=== PATIENT | female | born 1980 | race African-American/Black ===

== ENCOUNTER 2020-07-08 10:50 | Outpatient (CLI) | payer OTHER ==
[2020-07-08 18:13] LABS: HGB - HEMOGLOBIN 10.2 g/dL (12.0-16.0); MEAN CORPUSCULAR HGB CONC 31.8 g/dL (32.0-36.0); MEAN CORPUSCULAR VOLUME 88.2 fL (81.0-99.0); MEAN PLATELET VOLUME 10.2 fL (7.9-10.8); RED BLOOD COUNT 3.64 10^6/uL (4.20-5.40); RED CELL DISTRIBUTION WIDTH 14.9 % (12.0-15.0); WHITE BLOOD COUNT 10.9 x10^3/uL (4.8-10.8)
== END 2020-07-08 23:59 | disposition home or self-care (01) ==
LOC: LAB.WCP 10:50
PROVIDERS: ATTEND Obstetrics & Gynecology
DX: O09.90 Supervision of high risk pregnancy, unspecified, unspecified trimester (principal)
CPT/HCPCS: 36415; 82950; 85027

== ENCOUNTER 2020-07-08 22:51 | Observation (INO) | payer OTHER ==
[2020-07-08] MEDS ORDERED: ONDANSETRON 4 MG/2 ML VIAL IVP STA (23:15)
[2020-07-08] MEDS ORDERED: ONDANSETRON 4 MG/2 ML VIAL ONE (23:25)
--- NOTE | 2020-07-08 23:35 | ED Physician Documentation ---
PD HPI ABD PAIN - Stated complaint Stated Complaint: ABD PX/VOM - Chief complaint Chief Complaint: Abd Pain - History obtained from History obtained from: Patient - History of Present Illness Timing - onset: How many hours ago (1) Timing - details: Abrupt onset Pain level max: 10 Pain level now: 10 Quality: Pain Location: RUQ, Epigastric Radiation: Other (no radiation) Improved by: Other (no ameliorating factors) Worsened by: Other (no exacerbating factors) Associated symptoms: Nausea, Vomiting. No: Fever Similar symptoms before: Has not had sx before Recently seen: Not recently seen - Additional information Additional information: patient is 26 weeks , c/o sudden onset pain across upper abdomen 1 hour ago, constant and severe with nausea, vomiting.denies h/o similar symptoms. Review of Systems Constitutional: denies: Fever, Chills, Sweats Cardiac: reports: Reviewed and negative Respiratory: reports: Reviewed and negative GI: reports: Abdominal Pain, Nausea, Vomiting. denies: Constipation, Diarrhea : reports: Now EGA (26 weeks). denies: Dysuria, Frequency, Vaginal bleeding Skin: reports: Reviewed and negative Musculoskeletal: reports: Reviewed and negative PD PAST MEDICAL HISTORY - Past Medical History Past Medical History: No - Past Surgical History Past Surgical History: Yes /DUCT CLEANER: section - Allergies Allergies/Adverse Reactions: Allergies Allergy/AdvReac Type Severity Reaction Status Date / Time No Known Drug Allergies Allergy Verified 07/08/20 23:45 - Living Situation Living Situation: reports: With family Living Arrangement: reports: At home PD ED PE NORMAL - Vitals Vital signs reviewed: Yes - General General: Alert and oriented X 3, Well developed/nourished, Other (obvious severe painful distress) - HEENT HEENT: Moist mucous membranes - Cardiac Cardiac: RRR, No murmur - Respiratory Respiratory: No respiratory distress, Clear bilaterally - Back Back: No CVA TTP PD ED PE EXPANDED - Abdomen Abdomen: Tender to palpation, RUQ, Epigastric. No: Rebound, Guarding Results - Vitals Vitals: Vital Signs - 24 hr 07/08/20 07/09/20 07/09/20 23:08 02:00 03:00 Temperature 36.8 C 36.7 C Heart Rate 88 91 98 Respiratory 22 14 13 Rate Blood Pressure 141/71 H 121/64 121/70 O2 Saturation 100 100 100 07/09/20 03:50 Temperature 36.9 C Heart Rate 85 Respiratory 20 Rate Blood Pressure 127/72 O2 Saturation 100 Oxygen O2 Source Room air - Labs Labs: Laboratory Tests 07/08/20 07/08/20 00:00 00:00 WBC 13.8 H RBC 3.50 L Hgb 9.6 L Hct 30.3 L MCV 86.6 MCH 27.4 MCHC 31.7 L RDW 14.6 Plt Count 283 MPV 9.3 Neut # (Auto) 10.8 H Lymph # (Auto) 1.9 Bowman # (Auto) 0.8 Eos # (Auto) 0.1 Baso # (Auto) 0.1 Absolute Nucleated RBC 0.00 Nucleated RBC % 0.0 Sodium 138 Potassium 3.5 Chloride 108 Carbon Dioxide 20 L Anion Gap 10.0 BUN 10 Creatinine 0.8 Estimated GFR (MDRD) 97 Glucose 153 H Calcium 9.1 Total Bilirubin 0.4 AST 14 ALT 14 Alkaline Phosphatase 77 Total Protein 7.2 Albumin 3.2 Globulin 4.0 Albumin/Globulin Ratio 0.8 L Lipase 44 - Rads (name of study) RUQ US Radiology: Prelim report reviewed, See rad report OB 14+ weeks US Radiology: Prelim report reviewed, See rad report PD MEDICAL DECISION MAKING - ED course Complexity details: reviewed results, re-evaluated patient, considered differential, d/w patient, d/w family ED course: presents in severe painful distress, found to have large, nonmobile gallstone on US. she had significant improvement with 1mg IV dilaudid but required second dose (0.5 mg given for second dose) due to eventual recurrence of the pain, and then a third dose of 0.5 mg IV prior to admission. US measurements c/w 27 weeks gestation. D/W Dr. Meélndez; she says that if patient requires surgery, she would need to be transferred due to >20 week gestation. If patient is to be considered for admission to [facility] for symptom control only, admission would be to lab rn on-call at the discretion of the lab rn's level of comfort with such a plan. D/W Dr. Chatman, agrees with admit to [facility] for symptom control. There is no evidence, on exam or test results, of cholecystitis. Patient is getting good relief with the doses of IV dilaudid but would benefit from longer period of observation prior to discharge to assess for ongoing symptom control or, failing that, reconsidering transfer to another facility if surgery appears necessary. Departure - Departure Disposition: ED Place in Observation Clinical Impression: Biliary colic, Condition: Good Discharge Date/Time: 07/09/20 04:29
[2020-07-08] MEDS ORDERED: HYDROmorphone 1 MG/ML CARPUJECT IVP STA (23:45)
[2020-07-08] MEDS ORDERED: SODIUM CHLORIDE 0.9% 1,000 ML IV STA (23:47)
[2020-07-09 00:03] LABS: BASOPHILS # (AUTO) 0.1 10^3/uL (0.0-0.1); BASOPHILS % (AUTO) 0.4 %; EOSINOPHILS # (AUTO) 0.1 10^3/uL (0.0-0.7); HGB - HEMOGLOBIN 9.6 g/dL (12.0-16.0); LYMPHOCYTES # (AUTO) 1.9 10^3/uL (1.5-3.5); LYMPHOCYTES % (AUTO) 13.4 %; MEAN CORPUSCULAR HEMOGLOBIN 27.4 pg (27.0-31.0); MEAN CORPUSCULAR HGB CONC 31.7 g/dL (32.0-36.0); MEAN CORPUSCULAR VOLUME 86.6 fL (81.0-99.0); MEAN PLATELET VOLUME 9.3 fL (7.9-10.8); MONOCYTES # (AUTO) 0.8 10^3/uL (0.0-1.0); MONOCYTES % (AUTO) 6.1 %; NEUTROPHILS # (AUTO) 10.8 10^3/uL (1.5-6.6); NEUTROPHILS % (AUTO) 77.9 %; PLT - PLATELET COUNT 283 10^3/uL (130-450); RED CELL DISTRIBUTION WIDTH 14.6 % (12.0-15.0); WHITE BLOOD COUNT 13.8 x10^3/uL (4.8-10.8)
[2020-07-09 00:17] LABS: ALBUMIN 3.2 g/dL (3.2-5.5); ALBUMIN/GLOBULIN RATIO 0.8 (1.0-2.2); BILIRUBIN,TOTAL 0.4 mg/dL (0.2-1.0); CALCIUM 9.1 mg/dL (8.5-10.3); CREATININE 0.8 mg/dL (0.4-1.0); TOTAL PROTEIN 7.2 g/dL (6.7-8.2)
[2020-07-09] MEDS ORDERED: HYDROmorphone 1 MG/ML CARPUJECT IVP STA (01:47)
[2020-07-09] MEDS ORDERED: HYDROmorphone 0.5 MG/0.5 ML SYRINGE IVP STA ×2 (01:47→04:04)
[2020-07-09] MEDS ORDERED: ONDANSETRON 4 MG/2 ML VIAL IVP PRN (04:09)
--- NOTE | 2020-07-09 04:42 | HISTORY & PHYSICAL EXAMINATION ---
Admit History - Visit Reason Visit Reason: Other (gallstone related pain) - : 5 Parity: 1 Care: positive: Other (Recent transfer to [facility] from [place]. Bulk of care in [place] with records pending) Risk/History: positive: Previous Complications This : positive: Other (AMA, BMI 38, prior CS) - Mother's Labs Mother's Blood Type: positive: B Mother's RH: positive: Positive GBS: positive: Other (unknown 2/2 early GA) - Other Maternal History Other Maternal History: Patient is a 39 yo at 27+1 wga by LMP at 12 week us admitted to observation for pain management. Patient presented to the ED with RUQ pain. US shows obstructing gallstone without cholecystitis or elevated LFTs. Gen Surg had been consulted. Pain management was recommended with plan to relax gallbladder such that stone can dislodge. If surgery is indicated, will require transfer to an outside facility given viable but gestational age. "Cee-cee" Dating: LMP c/w 1st TM us per [place] records MINE 10/07/20 Rh + / rubella / varicella [ ] need to translate report Genetic: normal 1st trimester screen with NT Carrier: this is final Anatomy: Normal anatomy, nl fluid, anterior placenta without previa, CL 5.7, 92%ile EFW Gluc: 123 Tdap: not yet given Flu: given 07/03/20 Breast pump: given 07/03/20 HSV: TBA GBS gc/ct: MOD: Repeat with possible BTL on 09/30/19. Female, "[place]" Pap: 03/30/20 wnl Contraception: possible tubal--fed papers signed 07/03/20 PROBLEM LIST 1. Transfer [place] with some care in [place]: labs not transcribed yet 2. Prior for failed IOL; history of lysis of adhesions for tubal attachement to uterus--but no other adhesive disease 3. Breast augmentation: implants subpectoral but had supply problems last time. Reviewed assistance available PRN. 4. 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 Advanced maternal age 40yo on MINE: is on ASA 81mg daily. Normal genetic screen and anatomy US. Normal baseline PIH labs 24h urine 156mg and normal PIH labs on 05/28/20. 6. Hx of hemorrhage due to atony, no transfusion needed. 7. Obese prepregnancy BMI 38: Has gained 10#. Praised. 8. EFW 92% ile at anatomy US: follow up for growth ordered. Meds/Allgy - Allergies Allergies/Adverse Reactions: Allergies Allergy/AdvReac Type Severity Reaction Status Date / Time No Known Drug Allergies Allergy Verified 07/08/20 23:45 Review of Systems - Other Findings Other Findings: As per HPI, otherwise remaining systems are negative Physical - Abdominal Exam Vital Signs: Temp Pulse Resp BP Pulse Ox 98.4 F 85 20 127/72 100 07/09/20 03:50 07/09/20 03:50 07/09/20 03:50 07/09/20 03:50 07/09/20 03:50 Contraction Frequency (min/apart): none - Other Notes Labor Progress Note/Additional Text: GEN: NAD HEENT: NCAT CV: RRR RESP: CTAB ABD: gravid, soft. Mild TTP in epigastric area. No TTP in RUQ EXT: WWP PSYCH: appropriate affecy NEUro: A&O Plan for Labor - Plan For Labor Plan for Labor: Patient scenario reviewed with Dr. Meléndez for General Surgery Patient was admitted for observation for pain management in the setting of gallstones Per Dr. Meléndez, if gallbladder is able to relax, stone will dislodge and surgery and further pain management will not be indicated. If worsens, patient will need to be transferred to a facility that can manage 27 week delivery in the even of surgical complications. Patient's pain improved after 3 additional doses of dilaudid. She did not require and pain medications for discharge FWB: AGA tracing Discharged to home DX: at 27+1 wga cholelithiasis without cholecystitis or pancreatitis Pain management
[2020-07-09] MEDS ORDERED: SODIUM CHLORIDE 0.9% 1,000 ML IV SCH (05:00)
[2020-07-09] MEDS: HYDROmorphone 0.5 MG/0.5 ML SYRINGE IVP PRN ×3 (06:04→10:01)
[2020-07-09] MEDS ORDERED: FAMOTIDINE 20 MG/2 ML SYRINGE IVP ONE (07:00)
[2020-07-09 08:00] LABS: BASOPHILS % (AUTO) 0.2 %; EOSINOPHILS % (AUTO) 0.1 %; HGB - HEMOGLOBIN 10.8 g/dL (12.0-16.0); LYMPHOCYTES # (AUTO) 1.1 10^3/uL (1.5-3.5); LYMPHOCYTES % (AUTO) 6.5 %; MEAN CORPUSCULAR HEMOGLOBIN 27.8 pg (27.0-31.0); MEAN CORPUSCULAR HGB CONC 31.3 g/dL (32.0-36.0); MEAN CORPUSCULAR VOLUME 88.7 fL (81.0-99.0); MEAN PLATELET VOLUME 10.1 fL (7.9-10.8); MONOCYTES # (AUTO) 0.7 10^3/uL (0.0-1.0); MONOCYTES % (AUTO) 4.5 %; NEUTROPHILS # (AUTO) 14.1 10^3/uL (1.5-6.6); NEUTROPHILS % (AUTO) 86.3 %; PLT - PLATELET COUNT 301 10^3/uL (130-450); RED BLOOD COUNT 3.89 10^6/uL (4.20-5.40); RED CELL DISTRIBUTION WIDTH 14.6 % (12.0-15.0); WHITE BLOOD COUNT 16.3 x10^3/uL (4.8-10.8)
[2020-07-09 08:04] VITALS: BP 123/66
[2020-07-09 08:13] LABS: ALBUMIN 3.3 g/dL (3.2-5.5); ALBUMIN/GLOBULIN RATIO 0.8 (1.0-2.2); BILIRUBIN,TOTAL 0.3 mg/dL (0.2-1.0); CALCIUM 8.9 mg/dL (8.5-10.3); CREATININE 0.7 mg/dL (0.4-1.0); TOTAL PROTEIN 7.5 g/dL (6.7-8.2)
--- NOTE | 2020-07-09 08:29 | Ultrasound Report ---
PROCEDURE: Abdomen Limited INDICATIONS: epigastric pain TECHNIQUE: Real-time scanning was performed of the abdominal and retroperitoneal organs, with image documentatio n. COMPARISON: None. FINDINGS: Liver: Liver is normal in size and homogeneous in echotexture. Gallbladder: A single 2 cm gallstone is seen at the neck of the gallbladder. There is no significant gallbladder wall thickening. No pericholecystic fluid is seen. Sonographic Cook sign is unreliable setting of medication for pain. Biliary ducts: Intrahepatic bile ducts are non-dilated. Extrahepatic bile duct caliber measures 6 m m. Normal is 6-7 mm or less in diameter, or 10 mm or less post-cholecystectomy. Pancreas: The pancreas is not well-visualized due to overlying bowel gas. The visualized portion of t he pancreatic head appears normal. Right Kidney: Right kidney is normal in size and echotexture. Right kidney measures 10.1 cm long. N o hydronephrosis or nephrolithiasis. No solid masses. Iliacs: Proximal common iliac arteries are normal in caliber at less than 2.5 cm. Miscellaneous: No free right upper quadrant fluid. IMPRESSION: Cholelithiasis without additional signs of acute cholecystitis. There is no significant discrepancy when compared with the overnight teleradiology report. Reviewed by: Bora Rubin MD on 07/09/2020 8:28 AM PST Approved by: Bora Rubin MD on 07/09/2020 8:28 AM PST Station ID: [id number]
[2020-07-09 08:32] LABS: PLATELET ESTIMATE, MANUAL NORMAL (130-450,000) (NORMAL); PLATELET MORPHOLOGY 2+ LARGE PLATELETS (NORMAL); RBC MORPHOLOGY (MULTIPLE) NORMAL APPEARANCE (NORMAL)
--- NOTE | 2020-07-09 08:35 | Ultrasound Report ---
PROCEDURE: OB 14+ Weeks INDICATIONS: approximately 26 weeks , abd. pain OUTSIDE/PRIOR DATING DATA: Last menstrual period (LMP): 01/05/2020. LMP-based estimated date of delivery (MINE): 10/11/2020. First dating scan (date and location): Prior exam from [facility] is unavailable at the time of this dictat ion. TECHNIQUE: Real-time scanning was performed of the fetus, with image documentation and biometric measurements. Endovaginal scanning: Not performed. COMPARISON: No previous study is available for comparison at the time of this dictation. FINDINGS: General: A single living intrauterine gestation is present. Presentation: Cephalic Placenta: Placental position is anterior, without previa. Amniotic fluid index: 22.7 cm, 96th percentile for gestational age. heart rate: 128 beats per minute. Maternal cervical canal: 6.1 cm long; normal length is 2.5 cm or more. biometrics: Biparietal diameter: 6.43 cm, 26 weeks 0 days Head circumference: 24.7 cm, 26 weeks 6 days Abdominal circumference: 23.8 cm, 28 weeks 1 day Femur length: 5.25 cm, 28 weeks 0 days Estimated gestational age from initial scan: not applicable. Composite gestational age from present scan: 27 weeks 1 day Estimated weight and percentile: 1126 g, 86th percentile Measurement variability for biometric dating: +/- 10 days from 12-20 weeks gestation, +/- 2 weeks fro m 20-30 weeks gestation, +/- 3 weeks for 30 weeks gestation or later. Anatomic survey: Limited evaluation of anatomy demonstrates no significant abnormality. Recommend correlation wi prior exams if they should become available. IMPRESSION: 1. Single live intrauterine . No acute abnormality is visualized. 2. Amniotic fluid index is at the upper limits of normal for gestational age. Recommend correlation with clinical findings and prior exams if they become available. There is no significant discrepancy when compared with the overnight teleradiology report. Reviewed by: Bora Rubin MD on 07/09/2020 8:34 AM PST Approved by: Bora Rubin MD on 07/09/2020 8:34 AM PST Station ID: [id number]
== END 2020-07-09 13:35 | disposition home or self-care (01) ==
LOC: ED 22:51 → FBP 07-09 04:06
PROVIDERS: ADMIT Obstetrics & Gynecology; ATTEND Obstetrics & Gynecology
DX: O99.612 Diseases of the digestive system complicating pregnancy, second trimester (principal); K80.21 Calculus of gallbladder without cholecystitis with obstruction; Z3A.27 27 weeks gestation of pregnancy
CPT/HCPCS: 36415; 76705; 76805; 80053; 82728; 83540; 83690; 84466; 85025; 96374; 96375; 96376; 99284; 99285; G0378; J1170

== ENCOUNTER 2020-08-13 15:06 | Outpatient (CLI) | payer OTHER ==
[2020-08-13 15:14] VITALS: BP 116/73
--- NOTE | 2020-08-17 21:15 | PROCEDURE REPORT ---
- HPI Diagnosis/Indication for NST: Other (AMA) Current EDU 10/07/20 Gestation 32 Weeks and 1 Days 5 Para 1 Vital Signs Temperature 99.3 F 08/13/20 15:12 Heart Rate 94 08/13/20 15:12 Respiratory Rate 18 08/13/20 15:12 Blood Pressure 116/73 08/13/20 15:12 O2 Saturation 99 08/13/20 15:12 Temperature 99.3 F 08/13/20 15:12 Heart Rate 94 08/13/20 15:12 Respiratory Rate 18 08/13/20 15:12 Blood Pressure 116/73 08/13/20 15:12 O2 Saturation 99 08/13/20 15:12 - NST Procedure NST Procedure Start Date 08/13/20 Start Time 15:07 Stop Time 15:35 Vibroacoustic Stimulation Used No Patient States Movement Yes EFM 130 mod connor 15x15 accels no decels TOCO: qiet - Results and Plan Findings/Impression: 40 yo at 32+1 here for NST Cat I tracing Cont with twice weekly NSt and weekly ASTRID DX: AMA IUP at 32+1
== END 2020-08-13 17:00 | disposition home or self-care (01) ==
LOC: WFO 15:06 → FBP 15:11 → WFO 17:00
PROVIDERS: ATTEND Obstetrics & Gynecology
DX: O09.523 Supervision of elderly multigravida, third trimester (principal); Z3A.32 32 weeks gestation of pregnancy
CPT/HCPCS: 59025

== ENCOUNTER 2020-08-13 15:38 | Outpatient (CLI) | payer OTHER ==
--- NOTE | 2020-08-13 16:48 | Ultrasound Report ---
PROCEDURE: OB Limited INDICATIONS: ADV MATERNAL AGE, SUPER OF HIGH RISK OUTSIDE/PRIOR DATING DATA: Last menstrual period (LMP): 01/05/2020. LMP-based estimated date of delivery (MINE): 10/11/2020. First dating scan (date and location): 06/01/2020. Estimated date of delivery (MINE) from first dating scan: 10/05/2020. TECHNIQUE: Real-time scanning was performed of the fetus, with image documentation. Endovaginal scanning: Not needed COMPARISON: 07/09/2020 OB ultrasound FINDINGS: A single living intrauterine gestation is present. Presentation: Vertex Placenta: Placental position is anterior, without previa. Amniotic fluid index: 23.4 cm, 93.2 percentile for gestational age. heart rate: 131 beats per minutes. Maternal cervical canal not seen due to vertex presentation.. Estimated gestational age from initial scan: 32.3 weeks. IMPRESSION: Study Limited at clinician request 2 amniotic fluid volume evaluation. Current ASTRID is 23 .4 cm, at the upper 93rd percentile for current gestational age. Reviewed by: Ryan Lopez MD on 08/13/2020 4:47 PM PST Approved by: Ryan Lopez MD on 08/13/2020 4:47 PM PST Station ID: [id number]
== END 2020-08-13 15:39 | disposition home or self-care (01) ==
LOC: DI 15:38
PROVIDERS: ATTEND Obstetrics & Gynecology
DX: O09.93 Supervision of high risk pregnancy, unspecified, third trimester (principal); Z3A.32 32 weeks gestation of pregnancy; Z31.5 Encounter for procreative genetic counseling

== ENCOUNTER 2020-08-19 07:45 | Outpatient (CLI) | payer OTHER ==
--- NOTE | 2020-08-19 15:43 | Ultrasound Report ---
PROCEDURE: OB Limited INDICATIONS: ADV MATERNAL AGE, SUPER OF HIGH RISK OUTSIDE/PRIOR DATING DATA: Last menstrual period (LMP): 01/05/2020. LMP-based estimated date of delivery (MINE): 10/11/2020. First dating scan (date and location): 06/01/2020. Estimated date of delivery (MINE) from first dating scan: 10/05/2020. TECHNIQUE: Real-time scanning was performed of the fetus, with image documentation. Endovaginal scanning: Not needed COMPARISON: All prior OB ultrasound studies for this . FINDINGS: A single living intrauterine gestation is present. Presentation: Vertex Placenta: Placental position is anterior, without previa. Amniotic fluid index: 17.3 cm, 69 percentile for gestational age. heart rate: 139 beats per minutes. Maternal cervical canal: 5.1 cm long; normal length is 2.5 cm or more. Estimated gestational age from initial scan: 33 weeks 2 days, from first available OB ultrasound.. IMPRESSION: Appropriate amniotic fluid index, 69 percentile for current gestational age. Vertex pres entation, anterior placenta. No evidence of abnormality seen. Reviewed by: Ryan Lopez MD on 08/19/2020 3:41 PM PST Approved by: Ryan Lopez MD on 08/19/2020 3:41 PM PST Station ID: [id number]
--- NOTE | 2020-08-20 10:26 | Labor Flowsheet ---
Labor Flowsheet Datetime Report Generated by CPN: 08/20/2020 10:26 Datetime: 08/20/2020 10:06 VITAL SIGNS NBP Sys/Dayami/Mean (mmHg): 131 : 77 : 88 Pulse: 113
--- NOTE | 2020-09-02 13:27 | PROCEDURE REPORT ---
- HPI Diagnosis/Indication for NST: Other (AMA) Current EDU 10/07/20 Gestation 33 Weeks and 0 Days 5 Para 2 - NST Procedure NST Procedure Start Date 08/19/20 Start Time 08:22 Stop Time 09:22 Patient States Movement Yes - Results and Plan Findings/Impression: REACTIVE NST Plan: DOS 08/19/2020 CONTINUE ANTINATAL TESTING
== END 2020-08-19 09:30 | disposition home or self-care (01) ==
LOC: DI 07:45 → FBP 08:14 → DI 09:30
PROVIDERS: ATTEND Obstetrics & Gynecology
DX: O09.523 Supervision of elderly multigravida, third trimester (principal); Z3A.33 33 weeks gestation of pregnancy
CPT/HCPCS: 59025; 99212

== ENCOUNTER 2020-08-24 08:39 | Outpatient (CLI) | payer OTHER ==
[2020-08-24 09:02] VITALS: BP 110/59
--- NOTE | 2020-09-02 13:42 | PROCEDURE REPORT ---
- HPI Diagnosis/Indication for NST: Other (AMA) Current EDU 10/07/20 Gestation 33 Weeks and 5 Days 2 Para 1 Vital Signs Temperature 37.1 C 08/24/20 08:59 Heart Rate 102 H 08/24/20 08:59 Respiratory Rate 18 08/24/20 08:59 Blood Pressure 110/59 L 08/24/20 08:59 Temperature 37.1 C 08/24/20 08:59 Heart Rate 102 H 08/24/20 08:59 Respiratory Rate 18 08/24/20 08:59 Blood Pressure 110/59 L 08/24/20 08:59 O2 Saturation - NST Procedure NST Procedure Start Date 08/24/20 Start Time 08:45 Stop Time 09:28 Vibroacoustic Stimulation Used Yes: used x1 with accel noted Patient States Movement Yes - Results and Plan Findings/Impression: REACTIVE WITH ACCOSTIC STIM Plan: DOS 08/24/2020 CONTINUE ANTINATAL TESTING
== END 2020-08-24 09:56 | disposition home or self-care (01) ==
LOC: WFO 08:39 → FBP 08:42 → WFO 09:56
PROVIDERS: ATTEND Obstetrics & Gynecology
DX: O09.513 Supervision of elderly primigravida, third trimester (principal); Z3A.33 33 weeks gestation of pregnancy
CPT/HCPCS: 59025; 99212

== ENCOUNTER 2020-08-26 08:33 | Outpatient (CLI) | payer OTHER ==
[2020-08-26 08:48] VITALS: BP 109/63
--- NOTE | 2020-09-08 07:07 | PROCEDURE REPORT ---
- HPI Diagnosis/Indication for NST: Other (AMA) Current EDU 10/07/20 Gestation 34 Weeks and 0 Days 5 Para 1 Vital Signs Temperature 98.1 F 08/26/20 08:45 Heart Rate 104 H 08/26/20 08:45 Respiratory Rate 18 08/26/20 08:45 Blood Pressure 109/63 08/26/20 08:45 O2 Saturation 99 08/26/20 08:45 Temperature 98.1 F 08/26/20 08:47 Heart Rate 104 H 08/26/20 08:47 Respiratory Rate 18 08/26/20 08:47 Blood Pressure 109/63 08/26/20 08:47 O2 Saturation 99 08/26/20 08:47 - NST Procedure NST Procedure Start Date 08/26/20 Start Time 08:43 Stop Time 09:03 Vibroacoustic Stimulation Used No Patient States Movement Yes EFM 130 mod connor 15x15 accels no decels TOCO: quiet - Results and Plan Findings/Impression: Patient is a 40 yo at 34+o wga here for NST for advanced maternal age Cat I tracing Cont with twice weekly NST and weekly ASTRID IOL at 39+0 wga DX: Advanced maternal age
== END 2020-08-26 09:10 | disposition home or self-care (01) ==
LOC: WFO 08:33 → FBP 08:38 → WFO 09:10
PROVIDERS: ATTEND Obstetrics & Gynecology
DX: O09.523 Supervision of elderly multigravida, third trimester (principal); Z3A.34 34 weeks gestation of pregnancy
CPT/HCPCS: 59025

== ENCOUNTER 2020-08-26 09:14 | Outpatient (CLI) | payer OTHER ==
--- NOTE | 2020-08-26 11:06 | Ultrasound Report ---
PROCEDURE: OB Limited INDICATIONS: ADV MATERNAL AGE, SUPER OF HIGH RISK OUTSIDE/PRIOR DATING DATA: Last menstrual period (LMP): 01/05/2020. LMP-based estimated date of delivery (MINE): 10/11/2020. First dating scan (date and location): 06/01/2020. Estimated date of delivery (MINE) from first dating scan: 10/05/2020. TECHNIQUE: Real-time scanning was performed of the fetus, with image documentation. Endovaginal scanning: Not performed COMPARISON: 07/09/2020 and 08/13/2020. FINDINGS: A single living intrauterine gestation is present. Presentation: Vertex Placenta: Placental position is anterior, without previa. Amniotic fluid index: 17.3 cm, normal and 69 percentile for gestational age. heart rate: 139 beats per minutes. Maternal cervical canal: 5.1 cm long; normal length is 2.5 cm or more. Estimated gestational age from initial scan: 33 weeks, 2 days. Largest pocket is 7.76 cm in size. chest, stomach, bilateral kidneys and urinary bladder are vi sualized and are within normal limits. IMPRESSION: 1. Single live intrauterine with fetus in vertex presentation. heart rate is 139 bpm. 2. Normal amount of amniotic fluid with ASTRID measures 17.3 cm and largest pocket measures 7.8 cm in si ze. Reviewed by: Vladimir Bruce MD on 08/26/2020 11:05 AM PST Approved by: Vladimir Bruce MD on 08/26/2020 11:05 AM PST Station ID: [id number]
== END 2020-08-26 09:15 | disposition home or self-care (01) ==
LOC: DI 09:14
PROVIDERS: ATTEND Obstetrics & Gynecology
DX: O09.93 Supervision of high risk pregnancy, unspecified, third trimester (principal); Z31.5 Encounter for procreative genetic counseling

== ENCOUNTER 2020-09-01 06:54 | Outpatient (CLI) | payer OTHER ==
--- NOTE | 2020-09-01 11:40 | Ultrasound Report ---
PROCEDURE: OB Limited INDICATIONS: ADV MATERNAL AGE, SUPER OF HIGH RISK OUTSIDE/PRIOR DATING DATA: Last menstrual period (LMP): 01/05/2020. LMP-based estimated date of delivery (MINE): 10/11/2020. First dating scan (date and location): 06/01/2020. Estimated date of delivery (MINE) from first dating scan: 10/05/2020. TECHNIQUE: Real-time scanning was performed of the fetus, with image documentation. Endovaginal scanning: Not performed COMPARISON: None. FINDINGS: A single living intrauterine gestation is present. Presentation: Vertex Placenta: Placental position is anterior, without previa. Amniotic fluid index: 15.3 cm, 58th percentile for gestational age. heart rate: 141 beats per minutes. Maternal cervical canal: Not well visualized. IMPRESSION: ASTRID is within normal limits. Reviewed by: Evans Linda MD on 09/01/2020 11:39 AM PST Approved by: Evans Linda MD on 09/01/2020 11:39 AM PST Station ID: [id number]
== END 2020-09-01 06:55 | disposition home or self-care (01) ==
LOC: DI 06:54
PROVIDERS: ATTEND Obstetrics & Gynecology
DX: Z31.5 Encounter for procreative genetic counseling (principal); O09.90 Supervision of high risk pregnancy, unspecified, unspecified trimester

== ENCOUNTER 2020-09-01 07:26 | Outpatient (CLI) | payer OTHER ==
[2020-09-01 07:41] VITALS: BP 117/80
--- NOTE | 2020-09-01 11:50 | PROCEDURE REPORT ---
- HPI Diagnosis/Indication for NST: Other (advanced maternal age) Current EDU 10/05/20 Gestation 35 Weeks and 1 Days 5 Para 1 Vital Signs Temperature 99.0 F 09/01/20 07:39 Heart Rate 103 H 09/01/20 07:39 Respiratory Rate 18 09/01/20 07:39 Blood Pressure 117/80 09/01/20 07:39 O2 Saturation 100 09/01/20 07:39 Temperature 99.0 F 09/01/20 07:39 Heart Rate 103 H 09/01/20 07:39 Respiratory Rate 18 09/01/20 07:39 Blood Pressure 117/80 09/01/20 07:39 O2 Saturation 100 09/01/20 07:39 - NST Procedure NST Procedure Start Date 09/01/20 Start Time 07:35 Stop Time 08:05 Vibroacoustic Stimulation Used No Patient States Movement Yes - Results and Plan Findings/Impression: Baseline: 130BPM Variability: Moderate Accelerations: Present Decelerations: Absent Trends in FHR over time: no changes [place] contractions in 10 minutes: 0 Impression: Category 1 NST
== END 2020-09-01 08:20 | disposition home or self-care (01) ==
LOC: WFO 07:26 → FBP 07:30 → WFO 08:20
PROVIDERS: ATTEND Obstetrics & Gynecology
DX: O09.523 Supervision of elderly multigravida, third trimester (principal); O09.90 Supervision of high risk pregnancy, unspecified, unspecified trimester; Z31.5 Encounter for procreative genetic counseling; Z3A.35 35 weeks gestation of pregnancy
CPT/HCPCS: 59025

== ENCOUNTER 2020-09-04 08:25 | Outpatient (CLI) | payer OTHER ==
[2020-09-04 08:48] VITALS: BP 113/75
--- NOTE | 2020-09-04 18:06 | PROCEDURE REPORT ---
- HPI Diagnosis/Indication for NST: Other (Advanced maternal age >39yo) Current EDU 10/05/20 Gestation 35 Weeks and 4 Days 5 Para 1 Vital Signs Temperature 97.3 F L 09/04/20 08:38 Heart Rate 96 09/04/20 08:38 Respiratory Rate 18 09/04/20 08:38 Blood Pressure 113/75 09/04/20 08:38 O2 Saturation 100 09/04/20 08:38 Temperature 97.3 F L 09/04/20 08:38 Heart Rate 96 09/04/20 08:38 Respiratory Rate 18 09/04/20 08:38 Blood Pressure 113/75 09/04/20 08:38 O2 Saturation 100 09/04/20 08:38 - NST Procedure NST Procedure Start Date 09/04/20 Start Time 08:45 Stop Time 09:30 Vibroacoustic Stimulation Used No Patient States Movement Yes - Results and Plan Findings/Impression: Baseline: 120BPM Accelerations: present Decelerations: absent Variability: moderate Changes over time: none [place]: no contractions Impression: Category 1 NST
== END 2020-09-04 09:35 | disposition home or self-care (01) ==
LOC: WFO 08:25 → FBP 08:30 → WFO 09:35
PROVIDERS: ATTEND Obstetrics & Gynecology
DX: O09.523 Supervision of elderly multigravida, third trimester (principal); Z3A.35 35 weeks gestation of pregnancy
CPT/HCPCS: 59025

== ENCOUNTER 2020-09-08 06:58 | Outpatient (CLI) | payer OTHER ==
--- NOTE | 2020-09-08 12:25 | PROCEDURE REPORT ---
- HPI Diagnosis/Indication for NST: Other (Advanced maternal age >39yo) - NST Procedure NST Procedure Start Time 08:45 Stop Time 09:30 - Results and Plan Findings/Impression: Baseline: 120 BPM Variability: Moderate Accelerations: Present Decelerations: Absent Trends in FHR over time: no changes [place] contractions in 10 minutes: 0-1 Impression: reactive Category 1 NST
--- NOTE | 2020-09-08 17:14 | Ultrasound Report ---
PROCEDURE: OB Limited INDICATIONS: ADV MATERNAL AGE, SUPER OF HIGH RISK OUTSIDE/PRIOR DATING DATA: Last menstrual period (LMP): 01/05/2020. LMP-based estimated date of delivery (MINE): 10/11/2020. First dating scan (date and location): 06/01/2020. Estimated date of delivery (MINE) from first dating scan: 10/05/2020. TECHNIQUE: Real-time scanning was performed of the fetus, with image documentation. Endovaginal scanning: Not needed COMPARISON: Prior OB ultrasound studies for this FINDINGS: A single living intrauterine gestation is present. Presentation: Vertex Placenta: Placental position is anterior, without previa. Amniotic fluid index: 13.5 cm, normal for gestational age. heart rate: 136 beats per minutes. Estimated gestational age from initial scan: 36 weeks 1 day. IMPRESSION: Normal amniotic fluid volume, vertex presentation, normal progression of . Reviewed by: Ryan Lopez MD on 09/08/2020 5:13 PM PST Approved by: Ryan Lopez MD on 09/08/2020 5:13 PM PST Station ID: [id number]
== END 2020-09-08 06:59 | disposition home or self-care (01) ==
LOC: DI 06:58
PROVIDERS: ATTEND Obstetrics & Gynecology
DX: O09.93 Supervision of high risk pregnancy, unspecified, third trimester (principal); Z31.5 Encounter for procreative genetic counseling

== ENCOUNTER 2020-09-08 07:32 | Outpatient (CLI) | payer OTHER ==
[2020-09-08 07:45] VITALS: BP 117/68
--- NOTE | 2020-09-17 07:52 | PROCEDURE REPORT ---
- HPI Diagnosis/Indication for NST: Other (Advanced maternal age >39yo) Current EDU 10/05/20 Gestation 36 Weeks and 1 Days 5 Para 1 Vital Signs Temperature 98.8 F 09/08/20 07:44 Heart Rate 101 H 09/08/20 07:44 Respiratory Rate 18 09/08/20 07:44 Blood Pressure 117/68 09/08/20 07:44 O2 Saturation 100 09/08/20 07:44 Temperature 98.8 F 09/08/20 07:44 Heart Rate 101 H 09/08/20 07:44 Respiratory Rate 18 09/08/20 07:44 Blood Pressure 117/68 09/08/20 07:44 O2 Saturation 100 09/08/20 07:44 - NST Procedure NST Procedure Start Date 09/08/20 Start Time 07:42 Stop Time 08:07 Vibroacoustic Stimulation Used Yes Patient States Movement Yes - Results and Plan Findings/Impression: Baseline: BPM 125 Variability: Moderate Accelerations: Present Decelerations: Absent Trends in FHR over time: no changes Champion contractions in 10 minutes: 0 Impression: reactive Category 1 NST
== END 2020-09-08 08:16 | disposition home or self-care (01) ==
LOC: WFO 07:32 → FBP 07:35 → WFO 08:16
PROVIDERS: ATTEND Obstetrics & Gynecology
DX: O09.513 Supervision of elderly primigravida, third trimester (principal); Z3A.36 36 weeks gestation of pregnancy; Z31.5 Encounter for procreative genetic counseling
CPT/HCPCS: 59025

== ENCOUNTER 2020-09-11 08:20 | Outpatient (CLI) | payer OTHER ==
[2020-09-11 09:05] LABS: BASOPHILS % (AUTO) 0.3 %; EOSINOPHILS # (AUTO) 0.3 10^3/uL (0.0-0.7); EOSINOPHILS % (AUTO) 2.2 %; LYMPHOCYTES # (AUTO) 1.7 10^3/uL (1.5-3.5); LYMPHOCYTES % (AUTO) 14.7 %; MEAN CORPUSCULAR HEMOGLOBIN 26.5 pg (27.0-31.0); MEAN CORPUSCULAR HGB CONC 31.2 g/dL (32.0-36.0); MEAN CORPUSCULAR VOLUME 85.1 fL (81.0-99.0); MEAN PLATELET VOLUME 9.6 fL (7.9-10.8); MONOCYTES # (AUTO) 0.6 10^3/uL (0.0-1.0); MONOCYTES % (AUTO) 5.3 %; NEUTROPHILS # (AUTO) 8.7 10^3/uL (1.5-6.6); NEUTROPHILS % (AUTO) 76.4 %; PLT - PLATELET COUNT 333 10^3/uL (130-450); RED BLOOD COUNT 3.77 10^6/uL (4.20-5.40); WHITE BLOOD COUNT 11.4 x10^3/uL (4.8-10.8)
[2020-09-12 11:02] LABS: HIV AG/AB 4TH GEN NON-REACTIVE (NON-REACTIVE)
[2020-09-12 13:37] LABS: HEPATITIS C ANTIBODY NON-REACTIVE (NON-REACTIVE)
[2020-09-12 13:37] LABS: HEPATITIS B SURFACE ANTIGEN NON-REACTIVE (NON-REACTIVE)
== END 2020-09-11 08:21 | disposition home or self-care (01) ==
LOC: WFO 08:20
PROVIDERS: ATTEND Obstetrics & Gynecology
DX: O09.90 Supervision of high risk pregnancy, unspecified, unspecified trimester (principal)
CPT/HCPCS: 36415; 81599; 85025; 86762; 86787; 86803; 86850; 86900; 86901; 87340; 87389

== ENCOUNTER 2020-09-11 08:59 | Outpatient (CLI) | payer OTHER ==
[2020-09-11 09:13] VITALS: BP 128/74
--- NOTE | 2020-09-11 13:42 | PROCEDURE REPORT ---
- HPI Diagnosis/Indication for NST: Other (advanced maternal age >39yo) Current EDU 10/05/20 Gestation 36 Weeks and 4 Days Para 1 Vital Signs Temperature 99.0 F 09/11/20 09:10 Heart Rate 105 H 09/11/20 09:10 Respiratory Rate 09/11/20 09:10 Blood Pressure 128/74 09/11/20 09:10 O2 Saturation 100 09/11/20 09:10 Temperature 99.0 F 09/11/20 09:10 Heart Rate 105 H 09/11/20 09:10 Respiratory Rate 09/11/20 09:10 Blood Pressure 128/74 09/11/20 09:10 O2 Saturation 100 09/11/20 09:10 - NST Procedure NST Procedure Start Date 09/11/20 Start Time 09:08 Stop Time 09:30 Vibroacoustic Stimulation Used No Patient States Movement Yes - Results and Plan Findings/Impression: Baseline: 120 BPM Variability: Moderate Accelerations: Present Decelerations: Absent Trends in FHR over time: no changes [place] contractions in 10 minutes: 0-1 Impression: reactive Category 1 NST
== END 2020-09-11 09:36 | disposition home or self-care (01) ==
LOC: WFO 08:59 → FBP 09:02 → WFO 09:36
PROVIDERS: ATTEND Obstetrics & Gynecology
DX: O09.90 Supervision of high risk pregnancy, unspecified, unspecified trimester (principal); O09.513 Supervision of elderly primigravida, third trimester; Z3A.36 36 weeks gestation of pregnancy
CPT/HCPCS: 36415; 59025; 81599; 85025; 86762; 86787; 86803; 86850; 86900; 86901; 87340; 87389

== ENCOUNTER 2020-09-15 06:57 | Outpatient (CLI) | payer OTHER ==
--- NOTE | 2020-09-15 10:45 | Ultrasound Report ---
PROCEDURE: OB Limited INDICATIONS: ADV MATERNAL AGE, SUPER OF HIGH RISK OUTSIDE/PRIOR DATING DATA: Last menstrual period (LMP): 01/05/2020. LMP-based estimated date of delivery (MINE): 10/11/2020. First dating scan (date and location): 06/01/2020. Estimated date of delivery (MINE) from first dating scan: 10/05/2020. TECHNIQUE: Real-time scanning was performed of the fetus, with image documentation. Endovaginal scanning: Not needed COMPARISON: Multiple prior studies, the most recent from 09/08/2020 FINDINGS: A single living intrauterine gestation is present. Presentation: Vertex Placenta: Placental position is anterior, without previa. Amniotic fluid index: 14.0 cm, 53 percentile for gestational age. heart rate: 137 beats per minutes. Maternal cervical canal: Not seen cm long; normal length is 2.5 cm or more. Estimated gestational age from initial scan: 37 weeks, 1 day. IMPRESSION: 1. Single live fetus in vertex presentation. 2. Normal amniotic fluid volume. Reviewed by: Elsa Nazario MD on 09/15/2020 10:44 AM PST Approved by: Elsa Nazario MD on 09/15/2020 10:44 AM PST Station ID: [id number]
== END 2020-09-15 06:58 | disposition home or self-care (01) ==
LOC: DI 06:57
PROVIDERS: ATTEND Obstetrics & Gynecology
DX: O09.93 Supervision of high risk pregnancy, unspecified, third trimester (principal); Z3A.37 37 weeks gestation of pregnancy; Z31.5 Encounter for procreative genetic counseling

== ENCOUNTER 2020-09-15 07:30 | Outpatient (CLI) | payer OTHER ==
[2020-09-15 08:21] VITALS: BP 112/61
--- NOTE | 2020-09-18 21:58 | PROCEDURE REPORT ---
- HPI Diagnosis/Indication for NST: Other (AMA) Current EDU 10/05/20 Gestation 37 Weeks and 1 Days 2 Para 1 Vital Signs Temperature 97.9 F 09/15/20 07:44 Heart Rate 104 H 09/15/20 07:44 Respiratory Rate 18 09/15/20 07:44 Blood Pressure 112/61 09/15/20 07:44 O2 Saturation 100 09/15/20 07:44 Temperature 97.9 F 09/15/20 07:44 Heart Rate 104 H 09/15/20 07:44 Respiratory Rate 18 09/15/20 07:44 Blood Pressure 112/61 09/15/20 07:44 O2 Saturation 100 09/15/20 07:44 - NST Procedure NST Procedure Start Date 09/15/20 Start Time 07:40 Stop Time 08:12 Vibroacoustic Stimulation Used Yes Patient States Movement Yes EFM 135 mod connor 15x15 accels no decels TOCO: quiet - Results and Plan Findings/Impression: 40 yo at 37+1 wga here for NST Cat I tracing Cont with twice weekly NST and weekly ASTRID Delivery at 39 wga DX: AMA
== END 2020-09-15 08:31 | disposition home or self-care (01) ==
LOC: WFO 07:30 → FBP 07:33 → WFO 08:31
PROVIDERS: ATTEND Obstetrics & Gynecology
DX: O09.523 Supervision of elderly multigravida, third trimester (principal); Z36.85 Encounter for antenatal screening for Streptococcus B; Z31.5 Encounter for procreative genetic counseling; Z3A.37 37 weeks gestation of pregnancy
CPT/HCPCS: 59025; 87797

== ENCOUNTER 2020-09-15 08:00 | Outpatient (CLI) | payer OTHER | END 2020-09-15 23:59 | disposition home or self-care (01) | LOC: LAB.R 08:00 | PROVIDERS: ATTEND Obstetrics & Gynecology | DX: Z36.85 Encounter for antenatal screening for Streptococcus B (principal) | CPT/HCPCS: 87797 ==

== ENCOUNTER 2020-09-18 08:27 | Outpatient (CLI) | payer OTHER ==
[2020-09-18 08:48] VITALS: BP 108/79
--- NOTE | 2020-09-18 21:40 | PROCEDURE REPORT ---
- HPI Diagnosis/Indication for NST: Other (AMA) Current EDU 10/07/20 Gestation 37 Weeks and 2 Days 5 Para 1 Vital Signs Temperature 97.3 F L 09/18/20 08:46 Heart Rate 101 H 09/18/20 08:46 Respiratory Rate 16 09/18/20 08:46 Blood Pressure 108/79 09/18/20 08:46 O2 Saturation 100 09/18/20 08:46 Temperature 97.3 F L 09/18/20 08:46 Heart Rate 101 H 09/18/20 08:46 Respiratory Rate 16 09/18/20 08:46 Blood Pressure 108/79 09/18/20 08:46 O2 Saturation 100 09/18/20 08:46 - NST Procedure NST Procedure Start Date 09/18/20 Start Time 08:39 Stop Time 09:14 Vibroacoustic Stimulation Used No Patient States Movement Yes EFM 125 mof connor 15x15 accels no decels TOCO: quiet - Results and Plan Findings/Impression: Patient is a 40 yo at 37+ 2 wga here for NST for AMA Cat I tracing Cont with twice weekyl NST and weekly ASTRID Deliver at 39 wga DC to home DX: AMA
== END 2020-09-18 09:15 | disposition home or self-care (01) ==
LOC: WFO 08:27 → FBP 08:30 → WFO 09:15
PROVIDERS: ATTEND Obstetrics & Gynecology
DX: O09.523 Supervision of elderly multigravida, third trimester (principal); Z3A.37 37 weeks gestation of pregnancy
CPT/HCPCS: 59025

== ENCOUNTER 2020-09-22 06:50 | Outpatient (CLI) | payer OTHER ==
--- NOTE | 2020-09-22 11:09 | Ultrasound Report ---
PROCEDURE: OB Limited INDICATIONS: ADV MATERNAL AGE, SUPER OF HIGH RISK OUTSIDE/PRIOR DATING DATA: Last menstrual period (LMP): 01/05/2020. LMP-based estimated date of delivery (MINE): 10/11/2020. First dating scan (date and location): 06/01/2020. Estimated date of delivery (MINE) from first dating scan: 10/05/2020. TECHNIQUE: Real-time scanning was performed of the fetus, with image documentation. COMPARISON: 09/15/2020 FINDINGS: A single living intrauterine gestation is present. Presentation: Vertex Placenta: Placental position is anterior, without previa. Amniotic fluid index: 14.3 cm, 57% for gestational age. heart rate: 128 beats per minutes. Maternal cervical canal: Not well seen in late stage of Estimated gestational age from initial scan: 38 weeks 1 day. IMPRESSION: Living late third trimester intrauterine in vertex position. Continued normal ASTRID. Reviewed by: Nate Gardner MD on 09/22/2020 11:08 AM PST Approved by: Nate Gardner MD on 09/22/2020 11:08 AM PST Station ID: [id number]
== END 2020-09-22 06:51 | disposition home or self-care (01) ==
LOC: DI 06:50
PROVIDERS: ATTEND Obstetrics & Gynecology
DX: O09.90 Supervision of high risk pregnancy, unspecified, unspecified trimester (principal)

== ENCOUNTER 2020-09-22 07:28 | Outpatient (CLI) | payer OTHER ==
[2020-09-22 07:49] VITALS: BP 114/74
--- NOTE | 2020-09-25 08:57 | PROCEDURE REPORT ---
- HPI Diagnosis/Indication for NST: Other (ADVANCED MATERNAL AGE) Current EDU 10/07/20 Gestation 37 Weeks and 6 Days 2 Para 1 Vital Signs Temperature 36.9 C 09/22/20 07:43 Heart Rate 93 09/22/20 07:43 Respiratory Rate 18 09/22/20 07:43 Blood Pressure 114/74 09/22/20 07:43 O2 Saturation 99 09/22/20 07:43 Temperature 36.9 C 09/22/20 07:43 Heart Rate 93 09/22/20 07:43 Respiratory Rate 18 09/22/20 07:43 Blood Pressure 114/74 09/22/20 07:43 O2 Saturation 99 09/22/20 07:43 - NST Procedure NST Procedure Start Date 09/22/20 Start Time 07:38 Stop Time 08:03 Vibroacoustic Stimulation Used No Patient States Movement Yes - Results and Plan Findings/Impression: DOS 09/22/20 REACTIVE NST Plan: CONTINUE ANTINALAL TESTING
== END 2020-09-22 08:20 | disposition home or self-care (01) ==
LOC: WFO 07:28 → FBP 07:31 → WFO 08:20
PROVIDERS: ATTEND Obstetrics & Gynecology
DX: O09.90 Supervision of high risk pregnancy, unspecified, unspecified trimester (principal); O09.523 Supervision of elderly multigravida, third trimester; Z3A.37 37 weeks gestation of pregnancy
CPT/HCPCS: 59025

== ENCOUNTER 2020-09-25 07:02 | Outpatient (CLI) | payer OTHER ==
[2020-09-25 08:10] LABS: BASOPHILS % (AUTO) 0.4 %; EOSINOPHILS # (AUTO) 0.3 10^3/uL (0.0-0.7); EOSINOPHILS % (AUTO) 2.4 %; HGB - HEMOGLOBIN 10.2 g/dL (12.0-16.0); LYMPHOCYTES # (AUTO) 1.9 10^3/uL (1.5-3.5); LYMPHOCYTES % (AUTO) 18.9 %; MEAN CORPUSCULAR HEMOGLOBIN 26.8 pg (27.0-31.0); MEAN CORPUSCULAR HGB CONC 31.1 g/dL (32.0-36.0); MEAN CORPUSCULAR VOLUME 86.3 fL (81.0-99.0); MEAN PLATELET VOLUME 9.8 fL (7.9-10.8); MONOCYTES % (AUTO) 9.4 %; NEUTROPHILS % (AUTO) 67.8 %; PLT - PLATELET COUNT 333 10^3/uL (130-450); RED CELL DISTRIBUTION WIDTH 15.1 % (12.0-15.0); WHITE BLOOD COUNT 10.3 x10^3/uL (4.8-10.8)
== END 2020-09-25 07:03 | disposition home or self-care (01) ==
LOC: LAB 07:02
PROVIDERS: ATTEND Obstetrics & Gynecology
DX: Z01.812 Encounter for preprocedural laboratory examination (principal); O34.219 Maternal care for unspecified type scar from previous cesarean delivery; Z20.822 Contact with and (suspected) exposure to COVID-19
CPT/HCPCS: 36415; 85025

== ENCOUNTER 2020-09-30 05:44 | Inpatient (IN) | payer OTHER ==
[2020-09-30] MEDS ORDERED: ACETAMINOPHEN 1,000 MG/100 ML 100 ML IV ONE ×2 (06:20→09:27)
[2020-09-30] MEDS ORDERED: CITRIC ACID/SODIUM CITRATE 15 ML UDC PO ONE (06:20)
[2020-09-30] MEDS ORDERED: SODIUM CHLORIDE FLUSH 0.9% 10 ML SYRINGE IVP PRN ×2 (06:22→10:42)
[2020-09-30 06:29] LABS: BASOPHILS % (AUTO) 0.3 %; EOSINOPHILS # (AUTO) 0.2 10^3/uL (0.0-0.7); HGB - HEMOGLOBIN 10.2 g/dL (12.0-16.0); LYMPHOCYTES # (AUTO) 1.7 10^3/uL (1.5-3.5); LYMPHOCYTES % (AUTO) 16.8 %; MEAN CORPUSCULAR HEMOGLOBIN 26.7 pg (27.0-31.0); MEAN CORPUSCULAR HGB CONC 31.9 g/dL (32.0-36.0); MEAN CORPUSCULAR VOLUME 83.8 fL (81.0-99.0); MEAN PLATELET VOLUME 9.9 fL (7.9-10.8); MONOCYTES # (AUTO) 0.8 10^3/uL (0.0-1.0); MONOCYTES % (AUTO) 7.7 %; NEUTROPHILS # (AUTO) 7.4 10^3/uL (1.5-6.6); NEUTROPHILS % (AUTO) 72.5 %; PLT - PLATELET COUNT 341 10^3/uL (130-450); RED BLOOD COUNT 3.82 10^6/uL (4.20-5.40); RED CELL DISTRIBUTION WIDTH 15.2 % (12.0-15.0); WHITE BLOOD COUNT 10.2 x10^3/uL (4.8-10.8)
[2020-09-30] MEDS: LACTATED RINGERS 1,000 ML IV SCH ×2 (06:34→18:12)
[2020-09-30] MEDS ORDERED: ceFAZolin 2 GM in SODIUM CHLORIDE 0.9% MINIBAG 100 ML IV SCH (07:00)
[2020-09-30] MEDS ORDERED: LIDOCAINE 2%-EPI 1:100000 20 ML MDV ONE (07:21)
[2020-09-30] MEDS ORDERED: BUPIVACAINE 0.25% PF 30 ML VIAL ONE ×2 (07:21→07:51)
[2020-09-30] MEDS ORDERED: MORPHINE PF 5 MG/10 ML VIAL ONE (07:34)
--- NOTE | 2020-09-30 07:34 | ANESTHESIA ---
Pre-Anesthesia VS, & Labs - Diagnosis previous C/s with desired sterilization - Procedure with possible sterilization Vital Signs: Temp Pulse Resp BP Pulse Ox 37.5 C 95 111/60 09/30/20 06:24 09/30/20 06:24 09/30/20 06:24 Height: 5 ft 6 in Weight (kg): 102.965 kg Body Mass Index: 36.6 BMI Classification: Obese - NPO >8 hours - Is Patient ?: Yes - Lab Results Current Lab Results: Laboratory Tests 09/30/20 06:13: WBC 10.2, RBC 3.82 L, Hgb 10.2 L, Hct 32.0 L, MCV 83.8, MCH 26.7 L, MCHC 31.9 L, RDW 15.2 H, Plt Count 341, MPV 9.9, Neut # (Auto) 7.4 H, Lymph # (Auto) 1.7, [place] # (Auto) 0.8, Eos # (Auto) 0.2, Baso # (Auto) 0.0, Absolute Nucleated RBC 0.00, Nucleated RBC % 0.0 09/30/20 06:13: Blood Type B POSITIVE, Antibody Screen NEGATIVE, Crossmatch IS Only See Detail Fish Bones: 09/30/20 06:13 Home Medications and Allergies Home Medications: Ambulatory Orders Aspirin [Aspirin EC] 81 mg PO DAILY 09/29/20 Famotidine [Pepcid] 20 mg PO ONCE 09/29/20 Loratadine [Claritin] 10 mg PO DAILY 09/29/20 Omeprazole Magnesium 20 mg PO DAILY 09/29/20 Pnv No.95/Ferrous Fum/Folic AC [ Caplet] 1 tab PO DAILY 09/29/20 Active Medications Cefazolin Sodium 2 gm/ Sodium (Chloride) 100 mls @ 200 mls/hr IV ONCE YOUNG Stop: 09/30/20 12:00 Lactated Ringer's (Lr) 1,000 mls @ 125 mls/hr IV .Q8H YOUNG Last Admin: 09/30/20 06:34 Dose: 125 mls/hr Documented by: Sodium Chloride (Sodium Chloride Flush 0.9% 10 Ml Syringe) 10 ml IVP PRN PRN PRN Reason: NEEDED PER PROVIDER ORDERS Aspirin [Aspirin EC] 81 mg PO DAILY 09/29/20 Famotidine [Pepcid] 20 mg PO ONCE 09/29/20 Loratadine [Claritin] 10 mg PO DAILY 09/29/20 Omeprazole Magnesium 20 mg PO DAILY 09/29/20 Pnv No.95/Ferrous Fum/Folic AC [ Caplet] 1 tab PO DAILY 09/29/20 Allergies/Adverse Reactions: Allergies Allergy/AdvReac Type Severity Reaction Status Date / Time No Known Drug Allergies Allergy Verified 07/08/20 23:45 Anes History & Medical History - Anesthetic History Family history of Anesthesia Complications: Denies Family history of Malignant Hyperthermia: Denies - Medical History Cardiovascular: reports: None Pulmonary: reports: None Gastrointestinal: reports: None Urinary: reports: None Neuro: reports: None Musculoskeletal: reports: None Endocrine/Autoimmune: reports: None Blood Disorders: reports: None Skin: reports: None Smoking Status: Never smoker - Surgical History Gynecologic: section, Breast reduction, Other Orthopedic: Other Exam General: Alert Dental: WNL Mouth Openin Fingerbreadth Neck Mobility: Normal Mallampati classification: II Thyromental Distance: 4-6 cm Respiratory: Lungs clear Cardiovascular: Regular rate Abdomen: Normal bowel sounds Extremities: No clubbing Neurological: Normal gait Mental/Cognitive Status: Alert/Oriented X3 Cognitive Status: Within normal limits Plan Anesthesia Type: Spinal, Transverse Abdominis Plane (TAP) Block Regional Block: Per Surgeon's request for Post Op pain control Consent for Procedure(s) Verified and Reviewed: Yes Code Status: Attempt Resuscitation ASA classification: 2-Mild systemic disease Is this case an emergency?: No
[2020-09-30] MEDS ORDERED: METOCLOPRAMIDE 10 MG/2 ML VIAL IVP PRN (07:35)
[2020-09-30] MEDS ORDERED: MORPHINE 2 MG/ML CARPUJECT IVP PRN (07:35)
[2020-09-30] MEDS ORDERED: NALOXONE 0.4 MG/ML VIAL IVP PRN (07:35)
[2020-09-30] MEDS ORDERED: ePHEDrine 50 MG/ML VIAL IVP PRN (07:35)
[2020-09-30] MEDS ORDERED: ATROPINE ABBOJECT 1 MG/10 ML SYRINGE IVP PRN (07:35)
[2020-09-30] MEDS ORDERED: ONDANSETRON 4 MG/2 ML VIAL IVP PRN (07:35)
[2020-09-30] MEDS ORDERED: HYDROmorphone 0.5 MG/0.5 ML SYRINGE IVP PRN (07:35)
[2020-09-30] MEDS ORDERED: fentaNYL 100 MCG/2 ML VIAL IVP PRN (07:35)
--- NOTE | 2020-09-30 07:47 | HISTORY & PHYSICAL EXAMINATION ---
HPI - History of Present Illness HPI Comment/Other: Patient is a 40 yo at 39+0 wga here for scheduled repeat C/S. No contractions/VB/LOF. Endorses FM. Transfer from [place] at 26+1 wga. Cat I tracing ROS: As per HPI, otherwise remaining systems are negative GEN: NAD HEENT: NCAT CV: RR RESP: nl effort ABD; gravid, S&NT EXT: WWP NEURO: A&O PSYCH: appropriate affect EFM 125 mod connor 15x15 accels no decels TOCO: Quiet Allergies: No Known Allergies Medications: FERROUS SULFATE 325 (65 FE) MG ORAL TABLET (FERROUS SULFATE) Take one tablet by mouth twice daily; Route: ORAL FAMOTIDINE 20 MG ORAL TABLET (FAMOTIDINE) Take one tablet by mouth daily; Route: ORAL BREAST PUMP (Call Loop) Double electric breast pump with breast pump kit. sig: pump each breast as needed Dx: Z39.1 Lactating Mother RUMA: 5 years TUMS 500 MG ORAL TABLET CHEWABLE (CALCIUM CARBONATE ANTACID) ; Route: ORAL B-6 50 MG ORAL TABLET (PYRIDOXINE HCL) ; Route: ORAL PRILOSEC OTC 20 MG ORAL TABLET DELAYED RELEASE (OMEPRAZOLE MAGNESIUM) ; Route: ORAL LORADAMED 10 MG ORAL TABLET (LORATADINE) ; Route: ORAL FLUTICASONE PROPIONATE 50 MCG/ACT NASAL SUSPENSION (FLUTICASONE PROPIONATE) ; Route: NASAL UNISOM SLEEPTABS 25 MG ORAL TABLET (DOXYLAMINE SUCCINATE (SLEEP)) ; Route: ORAL ASPIRIN CHILDRENS 81 MG ORAL TABLET CHEWABLE (ASPIRIN) ; Route: ORAL PRE-JACK FORMULA ORAL TABLET ( [id number]) Take one tablet by mouth once a day; Route: ORAL Problems: Preop exam (ICD-V72.84) (LPB04-Y97.818) screening for streptococcus B (ICD-V28.6) (MEA37-U95.85) Uterine size date discrepancy, antepartum, unspecified trimester (ICD-649.63) (ASE83-J01.849) Supervision high risk , unspecified trimester (ICD-V23.9) (ZDE73-I21 .90) Advanced maternal age (ICD-V26.33) (CWY57-T05.5) Uterine scar from previous surgery affecting (ICD-654.90) (ICD10- O34.29) Risk Factors: Smoked Tobacco Use: Never smoker Exercise: no Alcohol Use: no Drug Use: no Vital Signs: Patient Profile: 40 Years Old Female Height: 66 inches Weight: 230 pounds BMI: 37.26 BP sittin / 72 Cuff size: regular Vitals Entered By: GINA Neal (September 22, 2020 8:54 AM) Meds Reviewed: Done Allergies Reviewed: Done No known allergies: T Past Medical History: Obese starting BMI 38 Past Surgical History: Dilatation & Curettage (2018) (2011) Breast Augmentation (2003) Laparoscopy.Lysis of adhesions (2018) Right foot surgery (2017) Flowsheet View for Follow-up Visit Estimated weeks of gestation: 37 6/7 Weight: 230 Blood pressure: 119 / 72 Fundal height: 38.5 FHR: 125 Vaginal bleeding: no Vaginal discharge: no activity: yes Labor symptoms: no position: vertex Next visit: 1 wk Comment: Reviewed NST from this am. Cat I CS scheduled for next week. 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 MATERIAL CONTROL SUPERVISOR Review of Systems ROS Comments: As per HPI, otherwise remaining systems are negative. Impression & Recommendations: Problem # 1: Supervision high risk , unspecified trimester (ICD-V23.9) (KPG49-X59.90) CS consents signed cat I tracing Proceed with CS T&C for 2 units Cee-cee" Dating: LMP c/w 1st TM us per [place] records MINE 10/07/20 B pos/Rub imm Genetic: normal 1st trimester screen with NT Carrier: declined Anatomy: Normal anatomy, nl fluid, anterior placenta without previa, CL 5.7, 92%ile EFW US on 07/09/2020 shows EFW 86%ile and anterior placenta Gluc: 123 Tdap: 07/28/2020 Flu: given 07/03/20 Breast pump: given 07/03/20 HSV: denies GBS gc/ct: neg MOD: Repeat WITHOUT BTL on 09/30/19. Female, "[place]" Pap: 03/30/20 Contraception: possible tubal--fed papers signed 07/03/20 DOES NOT WANT TUBAL PROBLEM LIST 1. Transfer [place] with some care in [place]: labs not transcribed yet . RESENT LABS. See PNL for results 2. Prior for failed IOL; history of lysis of adhesions for tubal attachement to uterus--but no other adhesive disease 3. Breast augmentation: implants subpectoral but had supply problems last time. Reviewed assistance available PRN. 4. 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 Advanced maternal age 40yo on MINE: is on ASA 81mg daily. Normal genetic screen and anatomy US. Normal baseline PIH labs 24h urine 156mg and normal PIH labs on 05/28/20. 6. Hx of hemorrhage due to atony, no transfusion needed. 7. Obese prepregnancy BMI 38: . Now 37.58 8. EFW 92% ile at anatomy US: follow up 86%ile on 07/09/2020--> anterior no previa Problem # 2: Preop exam (ICD-V72.84) (MUH19-I16.818) Reviewed risks/benefits/alternatives to Risks include, but are not limited to, bleeding, infection, damage to neatby tissue and organs. On average, EBL of up to 1 liter is considered within normal limits for CS. Risks of blood transfusion include infection Risk of HIV 1/2million nationwide Risk of Hepatitis 1/1 million Risks of transfusion reaction Infection risk moderate given clean/contaminated nature of procedure and IV anti biotics will be given. Damage to nearby tissue and organs including bladder, bowel, ureters, blood vessels, nerves, and fetus Damage may be noted intra-op and may be delayed until after the procedure is complete Reviewed management of complications and efforts to avoid such outcomes but reviewed that they may occur despite our best efforts Written informed consent obtained. Orders: [id number] - SUBSEQUENT VISIT ([id number]) Gender ID Identifies as Female P: 1 T: 1 A: 3 SAB: 3 L: 1 LMP: 01/01/2020 EDC: 10/07/2020 EDC by Ultrasound: 10/05/2020 Height: 66 (09/15/2020 8:44:39 AM) Weight: 230 Labs: Done (05/28/2020 8:54:26 AM) Group B: NEGATIVE (09/15/2020 9:30:00 AM) 28 weeks labs: GTT 123 (07/08/2020 8:54:49 AM) Initial US done: Normal (03/27/2020 8:55:12 AM) US: 27W 1D (07/08/2020 8:54:08 AM) FAS: Normal (07/09/2020 8:55:20 AM) Blood Type: B+ (05/28/2020 10:38:07 AM) RH Type: + (05/28/2020 10:38:06 AM) Last Antibody Screen: negative (05/28/2020 10:38:06 AM) Feeding Breast pump given? Yes HIV: negative (09/11/2020 10:43:54 AM) RPR: negative (09/11/2020 10:43:37 AM) Current Allergies: No Known Allergies Current Meds: FERROUS SULFATE 325 (65 FE) MG ORAL TABLET (FERROUS SULFATE) Take one tablet by mouth twice daily; Route: ORAL FAMOTIDINE 20 MG ORAL TABLET (FAMOTIDINE) Take one tablet by mouth daily; Route: ORAL BREAST PUMP (Call Loop) Double electric breast pump with breast pump kit. sig: pump each breast as needed Dx: Z39.1 Lactating Mother RUMA: 5 years TUMS 500 MG ORAL TABLET CHEWABLE (CALCIUM CARBONATE ANTACID) ; Route: ORAL B-6 50 MG ORAL TABLET (PYRIDOXINE HCL) ; Route: ORAL PRILOSEC OTC 20 MG ORAL TABLET DELAYED RELEASE (OMEPRAZOLE MAGNESIUM) ; Route: ORAL LORADAMED 10 MG ORAL TABLET (LORATADINE) ; Route: ORAL FLUTICASONE PROPIONATE 50 MCG/ACT NASAL SUSPENSION (FLUTICASONE PROPIONATE) ; Route: NASAL UNISOM SLEEPTABS 25 MG ORAL TABLET (DOXYLAMINE SUCCINATE (SLEEP)) ; Route: ORAL ASPIRIN CHILDRENS 81 MG ORAL TABLET CHEWABLE (ASPIRIN) ; Route: ORAL PRE-JACK FORMULA ORAL TABLET ( [id number]) Take one tablet by mouth once a day; Route: ORALPatien PMH/PSH - Past Medical History Cardiovascular: positive: None Respiratory: positive: None Neuro: positive: None Endocrine/Autoimmune: positive: None GI: positive: None : positive: None HEENT: positive: None Psych: positive: None Musculoskeletal: positive: None Derm: positive: None MRSA Hx?: Yes - Past Surgical History Ortho: positive: Other /MATERIAL CONTROL SUPERVISOR: positive: section, Breast reduction, Other Social & Family Hx - Social History Smoking Status: Never smoker Meds/Allgy - Home Medications Home Medications: Ambulatory Orders Medication Instructions Recorded Confirmed Aspirin [Aspirin EC] 81 mg PO DAILY 09/29/20 09/29/20 Famotidine [Pepcid] 20 mg PO ONCE 09/29/20 09/29/20 Loratadine [Claritin] 10 mg PO DAILY 09/29/20 09/29/20 Omeprazole Magnesium 20 mg PO DAILY 09/29/20 09/29/20 Pnv No.95/Ferrous Fum/Folic AC 1 tab PO DAILY 09/29/20 09/29/20 [ Caplet] - Allergies Allergies/Adverse Reactions: Allergies Allergy/AdvReac Type Severity Reaction Status Date / Time No Known Drug Allergies Allergy Verified 07/08/20 23:45 Exam - Vital Signs Vital Signs: Vital Signs x48h Temp Pulse BP 09/30/20 06:24 99.5 F 95 111/60 Results - Lab Results Fish Bones: 09/30/20 06:13 Other Lab Results: Lab Results x24hrs 09/30/20 09/30/20 Range/Units 06:13 06:13 WBC 10.2 (4.8-10.8) x10^3/uL RBC 3.82 L (4.20-5.40) 10^6/uL Hgb 10.2 L (12.0-16.0) g/dL Hct 32.0 L (37.0-47.0) % MCV 83.8 (81.0-99.0) fL MCH 26.7 L (27.0-31.0) pg MCHC 31.9 L (32.0-36.0) g/dL RDW 15.2 H (12.0-15.0) % Plt Count 341 (130-450) 10^3/uL MPV 9.9 (7.9-10.8) fL Neut # (Auto) 7.4 H (1.5-6.6) 10^3/uL Lymph # (Auto) 1.7 (1.5-3.5) 10^3/uL [place] # (Auto) 0.8 (0.0-1.0) 10^3/uL Eos # (Auto) 0.2 (0.0-0.7) 10^3/uL Baso # (Auto) 0.0 (0.0-0.1) 10^3/uL Absolute Nucleated RBC 0.00 x10^3/uL Nucleated RBC % 0.0 /100WBC Blood Type B POSITIVE Antibody Screen NEGATIVE Crossmatch IS Only See Detail
[2020-09-30] MEDS ORDERED: LACTATED RINGERS 1,000 ML IV SCH ×2 (08:00→11:00)
[2020-09-30] MEDS ORDERED: BUPIVACAINE 0.25% PF 30 ML VIAL SUBQ ONE ×2 (08:27)
[2020-09-30] MEDS ORDERED: LIDOCAINE 2%-EPI 1:100000 20 ML MDV SUBQ ONE ×2 (08:27)
[2020-09-30] MEDS ORDERED: ROPIVACAINE 0.5% PF 20 ML AMPULE ONE (08:47)
[2020-09-30] MEDS ORDERED: OXYTOCIN 10 UNIT/ML VIAL ONE ×2 (08:47→10:19)
[2020-09-30] MEDS ORDERED: ONDANSETRON 4 MG/2 ML VIAL ONE (08:47)
[2020-09-30] MEDS ORDERED: METOCLOPRAMIDE 10 MG/2 ML VIAL ONE (09:27)
[2020-09-30] MEDS ORDERED: KETAMINE 500 MG/10 ML VIAL ONE (09:41)
[2020-09-30] MEDS ORDERED: ePHEDrine 50 MG/ML VIAL IVP ONE (09:51)
[2020-09-30] MEDS ORDERED: LACTATED RINGERS 1,000 ML IV ONE (10:40)
[2020-09-30] MEDS ORDERED: SIMETHICONE CHEW 80 MG TABLET PO PRN (10:42)
[2020-09-30] MEDS ORDERED: ONDANSETRON ODT 4 MG TABLET TL PRN (10:42)
[2020-09-30] MEDS ORDERED: OXYTOCIN/SODIUM CHLORIDE 500 ML IV PRN (10:42)
--- NOTE | 2020-09-30 10:47 | OPERATIVE REPORT ---
Operative Report - General Admit Date: 09/30/20 Procedure Date: 09/30/20 Planned Procedure: Repeat low transverse Pre-Op Diagnosis: IUP at 39 wga; hx of prior Procedure Performed: Repeat low transverse Post Op Diagnosis: Same and delivery of term gestation - Procedure Note Primary Surgeon: Arlette Chatman MD Secondary Surgeon: MARCO Bills CNM Anesthesia Provider: Julio Mckeon CRNA Anesthesia Technique: Spinal, Other (TAP block post procedure) Pathology: Placenta for routine IV Fluids (mL): 1,500 Estimated Blood Loss (mL): 600 Urine Output (mL): 50 Indications: Patient is a 40 yo at 39+0 wga here for scheduled repeat C/S. Declines sterilization. Findings: Marked adhesive disease to anterior and fundus of uterus and anterior abdominal wall. Otherwise normal appearing uterus. Right tube and ovary normal appearing. Adhesive disease prevented full visual assessment of left tube and ovary. Left tube and ovary palpated normally. Small placenta, intact and 3 vessel cord. Vigorous female infant in vertex position with Apgars 8/9 and weight pending. Complications: None - Other Other Information/Narrative: Risks benefits and alternatives of the procedure were discussed. Written informed consent was obtained. Patient was taken to the operating room where spinal anesthesia was placed and found to be adequate. She was prepped and draped in the usual sterile fashion in the dorsal supine position with a leftward tilt. Castanon catheter was in place. SCDs were in place and activated. Cefazolin 2 g IV was given as a preoperative antibiotic. Preoperative timeout was performed. A total of 10 cc of 1% lidocaine with epinephrine was injected into the suture line prior to making the incision. A Pfannenstiel incision was made in the skin with a scalpel and carried through the underlying layer of fascia in a combination of sharp and blunt dissection. The fascia was incised in the midline, and the incision was extended laterally with the Gifford scissors. The superior aspect of the fascial incision was grasped with the Olga clamps, elevated, and the underlying rectus muscles were dissected off bluntly and sharply using the Gifford scissors. Attention was then turned to the inferior aspect of the incision which in a similar fashion was grasped, tented up with Olga clamps, and the underlying rectus muscles dissected off bluntly and sharply using Gifford scissors. The rectus muscles were then in the midline after careful dissection with sharp and blunt approach. The peritoneum was thickened with multiple adhesions. It was identified and entered bluntly. The peritoneal incision was extended superiorly and inferiorly with good visualization of the bladder. The bladder that blade was then inserted. A bladder flap was not created. The lower uterine segment of the uterus was identified, and incised in a transverse fashion with a scalpel. The uterus was entered bluntly. The uterine incision was extended in a craniocaudal fashion by manual stretch. The bladder blade was removed. The infant was delivered from from vertex position. Baby was wrapped in a warm sterile towel. Delayed cord clamping was performed. After cessation of pulsations, the cord was clamped x2 and cut. The was handed off to the waiting pediatricians. The placenta was removed with manual expression. The uterus was NOT exteriorized and cleared of all clots clots and debris via manual swipe using Ray-Danae x2. The uterine incision was then repaired in a running locked fashion using 0 Vicryl suture. The incision was reinforced with a running imbricating layer again using 0-Vicryl suture. There were multiple areas of raw surfaces that were bleeding after resection of the adhesions. These were addressed with figure of 8 sutures using 2-0 Chromic and cautery. Excellent hemostasis was obtained. The pelvis was irrigated with sloppy wet laparoscopy sponges. The uterine defect was well visualized in normal anatomic position it was noted again to be hemostatic. The peritoneum was then reapproximated with 2-0 Vicryl in a running fashion. The rectus muscles were then reapproximated using interrupted [id number] sutures using 2-0 Chromic. Good hemostasis was noted. The fascia was then closed using 0 Vicryl in a running fashion starting from the left lateral edge to the midline. A second suture was used to close the fascia in a running fashion starting from the right lateral edge and meeting in the midline, again using 0-Vicryl. The subcutaneous tissue was then irrigated and closed using 2-0 chromic in a running subcutaneous suture. Skin was closed in a running subcuticular suture using 4-0 Monocryl. Steri-Strips were applied to reinforce the incision and dressing was applied. Procedure was well-tolerated and without complication. Sponge lap and needle counts were correct x2. Patient was taken to recovery room in stable condition. MARCO Abebe CNM, assisted with retraction, delivery of the infant, and suturing.
[2020-09-30] MEDS: KETOROLAC 30 MG/ML VIAL IVP SCH ×3 (12:27→22:05)
--- NOTE | 2020-09-30 13:09 | ANESTHESIA POST OP EVALUATION ---
Anesthesia Post Eval - Post Anesthesia Eval Vitals: Last Vital Signs Temp 36.4 C L 09/30/20 11:27 Pulse 81 09/30/20 12:37 Resp 16 09/30/20 12:37 BP 107/60 09/30/20 12:37 Pulse Ox 100 09/30/20 12:37 CV Function Including HR & BP: positive: Stable Pain Control: positive: Satisfactory Nausea & Vomiting: positive: Negative Mental Status: positive: Baseline Respiratory Status: Airway Patent Hydration Status: Satisfactory Anesthesia Complications: positive: None
[2020-09-30] MEDS ORDERED: SODIUM CHLORIDE FLUSH 0.9% 10 ML SYRINGE IVP SCH (17:00)
[2020-09-30] MEDS: ACETAMINOPHEN 500 MG TABLET PO SCH (18:02)
[2020-09-30] MEDS: DOCUSATE SODIUM 100 MG CAPSULE PO SCH (22:05)
[2020-10-01] MEDS: ACETAMINOPHEN 500 MG TABLET PO SCH ×3 (04:01→20:31)
[2020-10-01] MEDS: KETOROLAC 30 MG/ML VIAL IVP SCH (04:01)
[2020-10-01 05:19] LABS: BASOPHILS % (AUTO) 0.2 %; EOSINOPHILS # (AUTO) 0.1 10^3/uL (0.0-0.7); EOSINOPHILS % (AUTO) 0.6 %; HCT - HEMATOCRIT 28.6 % (37.0-47.0); HGB - HEMOGLOBIN 8.8 g/dL (12.0-16.0); LYMPHOCYTES % (AUTO) 8.2 %; MEAN CORPUSCULAR HEMOGLOBIN 26.1 pg (27.0-31.0); MEAN CORPUSCULAR HGB CONC 30.8 g/dL (32.0-36.0); MEAN CORPUSCULAR VOLUME 84.9 fL (81.0-99.0); MEAN PLATELET VOLUME 9.9 fL (7.9-10.8); MONOCYTES # (AUTO) 1.1 10^3/uL (0.0-1.0); MONOCYTES % (AUTO) 8.7 %; NEUTROPHILS # (AUTO) 10.1 10^3/uL (1.5-6.6); NEUTROPHILS % (AUTO) 81.6 %; PLT - PLATELET COUNT 258 10^3/uL (130-450); RED BLOOD COUNT 3.37 10^6/uL (4.20-5.40); WHITE BLOOD COUNT 12.4 x10^3/uL (4.8-10.8)
[2020-10-01] MEDS ORDERED: SEVOFLURANE 250 ML LIQUID INH ONE (08:05)
[2020-10-01] MEDS ORDERED: SERTRALINE 50 MG TABLET PO SCH (09:00)
[2020-10-01] MEDS: IBUPROFEN 600 MG TABLET PO SCH ×3 (10:08→22:17)
[2020-10-01] MEDS: DOCUSATE SODIUM 100 MG CAPSULE PO SCH ×2 (10:09→20:32)
--- NOTE | 2020-10-01 17:03 | PROVIDER PROGRESS NOTE ---
Subjective - Prog Note Date Prog Note Date: 10/01/20 Prog Note Time: 12:15 - Subjective Subjective: Patient is doing quite well. Reports that she is not in any discomfort while resting in bed. Somewhat more challenging when ambulating. Has been up and out of bed and has voided. Dressing remains in place. Minimal lochia. BF going well. Objective - Vital Signs/Intake & Output Reviewed Vital Signs: Yes Vital Signs: Vital Signs x48h Temp Pulse Resp BP Pulse Ox 10/01/20 13:30 98.8 F 86 16 111/66 99 Intake & Output: Intake & Output 09/28/20 09/29/20 09/30/20 10/01/20 23:59 23:59 23:59 23:59 Intake Total 1700 700 Output Total 545 1535 Balance 1155 -835 - Objective General Appearance: positive: No acute distress Neck: positive: Nml inspection Respiratory: positive: No respiratory distress, Breath sounds nml Cardiovascular: positive: Regular rate & rhythm Abdomen: positive: Other (soft and appropriately tender. ND. Dressing CDI) Skin: positive: Color nml, Warm, Dry Extremities: positive: Non-tender, No pedal edema Neurologic/Psychiatric: positive: Oriented x3 - Lab Results Fish Bones: 10/01/20 04:56 Other Labs: Lab Results x24hrs 10/01/20 09/30/20 Range/Units 04:56 06:13 WBC 12.4 H (4.8-10.8) x10^3/uL RBC 3.37 L (4.20-5.40) 10^6/uL Hgb 8.8 L (12.0-16.0) g/dL Hct 28.6 L (37.0-47.0) % MCV 84.9 (81.0-99.0) fL MCH 26.1 L (27.0-31.0) pg MCHC 30.8 L (32.0-36.0) g/dL RDW 15.0 (12.0-15.0) % Plt Count 258 (130-450) 10^3/uL MPV 9.9 (7.9-10.8) fL Neut # (Auto) 10.1 H (1.5-6.6) 10^3/uL Lymph # (Auto) 1.0 L (1.5-3.5) 10^3/uL [place] # (Auto) 1.1 H (0.0-1.0) 10^3/uL Eos # (Auto) 0.1 (0.0-0.7) 10^3/uL Baso # (Auto) 0.0 (0.0-0.1) 10^3/uL Absolute Nucleated RBC 0.00 x10^3/uL Nucleated RBC % 0.0 /100WBC Blood Type B POSITIVE Antibody Screen NEGATIVE Crossmatch IS Only See Detail Assessment/Plan - Problem List (1) deliv NOS-unsp Impression: POD#1: Doing well Working on goals for discharge Encourage ambulation Transitioning to po pain meds Anticipate DC home tomorrow
[2020-10-01] MEDS: oxyCODONE 5 MG TABLET PO PRN (21:20)
[2020-10-02] MEDS: IBUPROFEN 600 MG TABLET PO SCH ×2 (04:48→10:16)
[2020-10-02] MEDS: ACETAMINOPHEN 500 MG TABLET PO SCH (04:48)
[2020-10-02] MEDS: DOCUSATE SODIUM 100 MG CAPSULE PO SCH (07:58)
[2020-10-02 09:20] VITALS: BP 121/60
[2020-10-02] MEDS: oxyCODONE 5 MG TABLET PO PRN (11:50)
--- NOTE | 2020-10-02 12:24 | Discharge Plan ---
Discharge Plan Problem Reviewed?: Yes Disposition: Home, Self Care Condition: Good Prescriptions: Acetaminophen [Acetaminophen Extra Strength] 1,000 mg PO Q8H PRN #60 tab PRN Reason: Pain Docusate Sodium 100Mg Capsule [Colace 100Mg Capsule] 100 - 200 mg PO BID PRN #60 cap PRN Reason: Constipation Ibuprofen [Motrin] 600 mg PO Q6H PRN #60 tab PRN Reason: Pain oxyCODONE [Roxicodone] 2.5 - 5 mg PO Q4H PRN #24 tab PRN Reason: Severe Pain Activity Restrictions: Additional Comments Plan of Treatment: Ibuprofen 600 mg by mouth every 6 hours as needed for pain Acetaminophen 500-1000 mg by mouth every 8 hours as needed for pain Docusate 100-200 mg by mouth twice a day as needed for constipation Oxycodone 5 mg by mouth every 4 hours as needed for pain Additional Instructions or Follow Up instructions: Nothing in the vagina for 6 weeks: No intercourse, tampons, douching Call for: -Fever greater than 100.5 -Pain that does not improve with pain medication -Heavy bleeding in which you are soaking a pad an hour for 2 hours in a row -Incision becomes hot, hard, red, starts to open, or leaks foul smelling fluid No lifting more than 10# for 4 weeks [address] while on narcotics Ok to shower. Let water run over the incision. Do not soap, scrub, or apply lotion. Pat dry with a clean towel or bhanu a behavioral [employer] department chair. The surgical stickers will start to peel off and you can remove them when they do. Otherwise, the provider will remove them at your one week follow-up appointment. OK to use an unscented sanitary napkin or clean washcloth to keep the incision dry if the belly folds over the incision. No Smoking: If you smoke, Please STOP! Call for help.
--- NOTE | 2020-10-02 14:42 | Labor Flowsheet ---
Labor Flowsheet Datetime Report Generated by CPN: 10/02/2020 14:41 Datetime: 09/22/2020 07:42 VITAL SIGNS NBP Sys/Dayami/Mean (mmHg): 114 : 74 : 83 Pulse: 93 COMMUNICATION LaborFlag: Labor Datetime: 09/18/2020 08:44 SpO2 (%): 100 Datetime: 09/01/2020 07:34 Stage of : Labor Datetime: 08/24/2020 09:22 ASSESSMENT A Comments: Acoustical Stim w pos result
--- NOTE | 2020-10-02 15:41 | DISCHARGE SUMMARY ---
Discharge Summary Admit Date: 09/30/20 Discharge Date: 10/02/20 Discharging Provider: Lurdes Condition at Discharge: Good Discharge Disposition: 01 Home, Self Care - DIAGNOSES Admission Diagnoses: IUP at 39 wga Hx of prior AMA Discharge Diagnoses with Status of Each Condition: Same and delivery of term gestation - HPI History of Present Illness: 40 yo at 39+0 wga here for scheduled repeat . Transfer of care from [facility] at 26 wga. CS consents signed Cat I tracing at admission T&C for 2 units Cee-cee" Dating: LMP c/w 1st TM us per [place] records MINE 10/07/20 B pos/Rub imm Genetic: normal 1st trimester screen with NT Carrier: declined Anatomy: Normal anatomy, nl fluid, anterior placenta without previa, CL 5.7, 92%ile EFW US on 07/09/2020 shows EFW 86%ile and anterior placenta Gluc: 123 Tdap: 07/28/2020 Flu: given 07/03/20 Breast pump: given 07/03/20 HSV: denies GBS gc/ct: neg MOD: Repeat WITHOUT BTL on 09/30/19. Female, "[place]" Pap: 03/30/20 Contraception: possible tubal--fed papers signed 07/03/20 DOES NOT WANT TUBAL - HOSPITAL COURSE Hospital Course: Patient was admitted for scheduled repeat . Procedure was uncomplicated and well tolerated. There was marked adhesive disease to anterior and fundus of uterus and anterior abdominal wall. Otherwise normal appearing uterus. Right tube and ovary normal appearing. Adhesive disease prevented full visual assessment of left tube and ovary. Left tube and ovary palpated normally. Small placenta, intact and 3 vessel cord. Vigorous female infant in vertex position with Apgars 8/9 and weight 3015 grams. Post operative course was uncomplicated. Meeting goals for discharge on post- operative day #2. Routine discharge instructions given. - ALLERGIES Allergies/Adverse Reactions: Allergies Allergy/AdvReac Type Severity Reaction Status Date / Time No Known Drug Allergies Allergy Verified 07/08/20 23:45 - MEDICATIONS Home Medications: Ambulatory Orders Medication Instructions Recorded Confirmed Aspirin [Aspirin EC] 81 mg PO DAILY 09/29/20 09/29/20 Famotidine [Pepcid] 20 mg PO ONCE 09/29/20 09/29/20 Loratadine [Claritin] 10 mg PO DAILY 09/29/20 09/29/20 Omeprazole Magnesium 20 mg PO DAILY 09/29/20 09/29/20 Pnv No.95/Ferrous Fum/Folic AC 1 tab PO DAILY 09/29/20 09/29/20 [ Caplet] Acetaminophen [Acetaminophen Extra 1,000 mg PO Q8H PRN #60 tab 10/01/20 Strength] Docusate Sodium 100Mg Capsule 100 - 200 mg PO BID PRN #60 cap 10/01/20 [Colace 100Mg Capsule] Ibuprofen [Motrin] 600 mg PO Q6H PRN #60 tab 10/01/20 oxyCODONE [Roxicodone] 2.5 - 5 mg PO Q4H PRN #24 tab 10/01/20 - PHYSICAL EXAM AT DISCHARGE General Appearance: positive: No acute distress Cardiovascular: positive: Regular rate & rhythm Peripheral Pulses: positive: 2+ Abdomen: positive: Other (FF firm below umbi, S&NT/ND) Skin: positive: Color nml, Warm, Dry Extremities: positive: Non-tender, No pedal edema Neurologic/Psychiatric: positive: Oriented x3 Physical Exam Other/Comments: INCISION: Dressing removed. Incision is CDI with steris in place - LABS Result Diagrams: 10/01/20 04:56 - FOLLOW UP Follow Up: 1 week with Lurdes - TIME SPENT Time Spent in Discharge (Minutes): 30
== END 2020-10-02 13:20 | disposition home or self-care (01) | DRG 788 ==
LOC: MS2 05:44 → FBP 06:16
PROVIDERS: ADMIT Obstetrics & Gynecology; ATTEND Obstetrics & Gynecology
PROC: 10D00Z1 Extraction of Products of Conception, Low, Open Approach (ICD-10-PCS; principal; 2020-09-30 07:30)
DX: O34.219 Maternal care for unspecified type scar from previous cesarean delivery (principal); Z37.0 Single live birth; O99.892 Other specified diseases and conditions complicating childbirth; N85.8 Other specified noninflammatory disorders of uterus; N73.6 Female pelvic peritoneal adhesions (postinfective); Z87.59 Personal history of other complications of pregnancy, childbirth and the puerperium; N96 Recurrent pregnancy loss; Z3A.39 39 weeks gestation of pregnancy; Z79.82 Long term (current) use of aspirin; Z79.899 Other long term (current) drug therapy
CPT/HCPCS: 36415; 85025; 86850; 86900; 86901; 86920; A9270; J0131; J2274; J2765; J3490; J7120

== ENCOUNTER 2020-10-06 16:44 | Emergency (ER) | payer OTHER ==
[2020-10-06 16:56] VITALS: BP 144/85
[2020-10-06 17:38] LABS: BASOPHILS # (AUTO) 0.1 10^3/uL (0.0-0.1); BASOPHILS % (AUTO) 0.6 %; EOSINOPHILS # (AUTO) 0.5 10^3/uL (0.0-0.7); EOSINOPHILS % (AUTO) 4.5 %; HGB - HEMOGLOBIN 9.2 g/dL (12.0-16.0); LYMPHOCYTES % (AUTO) 19.2 %; MEAN CORPUSCULAR HEMOGLOBIN 26.6 pg (27.0-31.0); MEAN CORPUSCULAR HGB CONC 31.3 g/dL (32.0-36.0); MEAN PLATELET VOLUME 9.2 fL (7.9-10.8); MONOCYTES # (AUTO) 0.8 10^3/uL (0.0-1.0); MONOCYTES % (AUTO) 7.5 %; NEUTROPHILS # (AUTO) 6.8 10^3/uL (1.5-6.6); NEUTROPHILS % (AUTO) 64.5 %; PLT - PLATELET COUNT 406 10^3/uL (130-450); RED BLOOD COUNT 3.46 10^6/uL (4.20-5.40); RED CELL DISTRIBUTION WIDTH 14.8 % (12.0-15.0); WHITE BLOOD COUNT 10.5 x10^3/uL (4.8-10.8)
[2020-10-06 17:43] LABS: ALBUMIN 3.4 g/dL (3.2-5.5); ALBUMIN/GLOBULIN RATIO 0.8 (1.0-2.2); BILIRUBIN,TOTAL 0.3 mg/dL (0.2-1.0); CALCIUM 9.8 mg/dL (8.5-10.3); TOTAL PROTEIN 7.6 g/dL (6.7-8.2)
[2020-10-06 17:43] LABS: BILIRUBIN,URINE NEGATIVE (NEGATIVE); GLUCOSE, URINE (UA) NEGATIVE (NEGATIVE); KETONES,URINE (UA) NEGATIVE (NEGATIVE); LEUKOCYTE ESTERASE, URINE SMALL (NEGATIVE); NITRITE,URINE NEGATIVE (NEGATIVE); OCCULT BLOOD,URINE LARGE (NEGATIVE); PH,URINE 5.5 PH (5.0-7.5); PROTEIN,URINE TRACE mg/dL (NEGATIVE); UROBILINOGEN,URINE 0.2 (NORMAL) E.U./dL (NORMAL)
[2020-10-06 17:44] LABS: CLARITY,URINE SL. CLOUDY (CLEAR)
[2020-10-06 17:48] LABS: BACTERIA,URINE Rare /HPF (None Seen); SQUAMOUS EPITHELIAL CELL,UR RARE Squamous (<= Few)
--- NOTE | 2020-10-06 17:50 | ED Physician Documentation ---
History of Present Illness - Stated complaint Stated Complaint: RT FOOT PX, SENT BY PCP - Chief complaint Chief Complaint: Ext Problem - History obtained from History obtained from: Patient - History of Present Illness Pain level max: 0 Pain level now: 0 - Additonal information Additional information: Patient is a 40-year-old female who is approximately 5 days status post C- section. She states that her legs have been swollen since the . She states the right leg is more swollen than the left. She tried to see the OB clinic today, but they told her to come to the emergency department instead and refused to see her in clinic. Patient has no chest pain. No shortness of breath. Nothing makes it better or worse. She states she had similar swelling with past pregnancies. Review of Systems Ten Systems: 10 systems reviewed and negative Constitutional: denies: Fever, Chills Throat: denies: Sore throat Cardiac: denies: Chest pain / pressure, Palpitations Respiratory: denies: Dyspnea, Cough, Wheezing GI: denies: Nausea, Vomiting, Diarrhea Skin: denies: Rash Musculoskeletal: denies: Neck pain, Back pain Neurologic: denies: Headache PD PAST MEDICAL HISTORY - Past Medical History Past Medical History: No Cardiovascular: None Respiratory: None Neuro: None Endocrine/Autoimmune: None GI: None : None HEENT: None Psych: None Musculoskeletal: None Derm: None - Past Surgical History Past Surgical History: Yes Ortho: Other /HOTEL ROOM ATTENDANT: section, Breast reduction, Other - Present Medications Home Medications: Ambulatory Orders Medication Instructions Recorded Confirmed Aspirin [Aspirin EC] 81 mg PO DAILY 09/29/20 09/29/20 Famotidine [Pepcid] 20 mg PO ONCE 09/29/20 09/29/20 Loratadine [Claritin] 10 mg PO DAILY 09/29/20 09/29/20 Omeprazole Magnesium 20 mg PO DAILY 09/29/20 09/29/20 Pnv No.95/Ferrous Fum/Folic AC 1 tab PO DAILY 09/29/20 09/29/20 [ Caplet] Acetaminophen [Acetaminophen Extra 1,000 mg PO Q8H PRN #60 tab 10/01/20 Strength] Docusate Sodium 100Mg Capsule 100 - 200 mg PO BID PRN #60 cap 10/01/20 [Colace 100Mg Capsule] Ibuprofen [Motrin] 600 mg PO Q6H PRN #60 tab 10/01/20 oxyCODONE [Roxicodone] 2.5 - 5 mg PO Q4H PRN #24 tab 10/01/20 - Allergies Allergies/Adverse Reactions: Allergies Allergy/AdvReac Type Severity Reaction Status Date / Time No Known Drug Allergies Allergy Verified 10/06/20 16:52 - Social History Does the pt smoke?: No Smoking Status: Never smoker Does the pt drink ETOH?: No Does the pt have substance abuse?: No - Immunizations Immunizations are current?: Yes - POLST Patient has POLST: No PD ED PE NORMAL - Vitals Vital signs reviewed: Yes - General General: Alert and oriented X 3, No acute distress, Well developed/nourished - HEENT HEENT: Moist mucous membranes - Neck Neck: Supple, no meningeal sign - Cardiac Cardiac: RRR - Respiratory Respiratory: No respiratory distress, Clear bilaterally - Derm Derm: Warm and dry - Extremities Extremities: Other (Bilateral lower extremity edema, 1+ pitting bilateral. No calf tenderness. No cord) - Neuro Neuro: Alert and oriented X 3 Results - Vitals Vitals: Vital Signs - 24 hr 10/06/20 10/06/20 16:52 17:20 Temperature 36.2 C L 36.5 C Heart Rate 78 78 Respiratory 18 18 Rate Blood Pressure 144/85 H 144/85 H O2 Saturation 99 99 Oxygen O2 Source Room air - Labs Labs: Laboratory Tests 10/06/20 10/06/20 10/06/20 17:24 17:24 17:40 WBC 10.5 RBC 3.46 L Hgb 9.2 L Hct 29.4 L MCV 85.0 MCH 26.6 L MCHC 31.3 L RDW 14.8 Plt Count 406 MPV 9.2 Neut # (Auto) 6.8 H Lymph # (Auto) 2.0 [place] # (Auto) 0.8 Eos # (Auto) 0.5 Baso # (Auto) 0.1 Absolute Nucleated RBC 0.00 Nucleated RBC % 0.0 Sodium 142 Potassium 3.7 Chloride 106 Carbon Dioxide 22 Anion Gap 14.0 H BUN 15 Creatinine 1.0 Estimated GFR (MDRD) 61 L Glucose 100 Calcium 9.8 Total Bilirubin 0.3 AST 19 ALT 21 Alkaline Phosphatase 114 Total Protein 7.6 Albumin 3.4 Globulin 4.2 Albumin/Globulin Ratio 0.8 L Lipase 35 Urine Color YELLOW Urine Clarity SL. CLOUDY Urine pH 5.5 Ur Specific [place] 1.020 Urine Protein TRACE Urine Glucose (UA) NEGATIVE Urine Ketones NEGATIVE Urine Occult Blood LARGE H Urine Nitrite NEGATIVE Urine Bilirubin NEGATIVE Urine Urobilinogen 0.2 (NORMAL) Ur Leukocyte Esterase SMALL H Urine RBC 11-25 H Urine WBC 6-10 H Ur Squamous Epith Cells RARE Squamous Urine Bacteria Rare Ur Microscopic Review INDICATED Urine Culture Comments INDICATED Urine Creatinine Ur Total Protein Timed Protein/Creatinin Ratio 10/06/20 17:40 WBC RBC Hgb Hct MCV MCH MCHC RDW Plt Count MPV Neut # (Auto) Lymph # (Auto) [place] # (Auto) Eos # (Auto) Baso # (Auto) Absolute Nucleated RBC Nucleated RBC % Sodium Potassium Chloride Carbon Dioxide Anion Gap BUN Creatinine Estimated GFR (MDRD) Glucose Calcium Total Bilirubin AST ALT Alkaline Phosphatase Total Protein Albumin Globulin Albumin/Globulin Ratio Lipase Urine Color Urine Clarity Urine pH Ur Specific [place] Urine Protein Urine Glucose (UA) Urine Ketones Urine Occult Blood Urine Nitrite Urine Bilirubin Urine Urobilinogen Ur Leukocyte Esterase Urine RBC Urine WBC Ur Squamous Epith Cells Urine Bacteria Ur Microscopic Review Urine Culture Comments Urine Creatinine 91.9 Ur Total Protein Timed 36 Protein/Creatinin Ratio 0.4 H - Rads (name of study) duplex US B LE Radiology: Prelim report reviewed, EMP read contemporaneously, See rad report (no DVT) PD MEDICAL DECISION MAKING - ED course Complexity details: reviewed results, re-evaluated patient, considered differential, d/w patient, 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 Discussed the case with Dr. Nixon, OB on-call. Recommends duplex ultrasound bilateral lower extremities, CBC, CMP and urine MTP to creatinine ratio. These were obtained. No significant abnormalities. Patient was given a dose of Lasix here. No DVT on ultrasound. She will follow-up in the office tomorrow with Dr. Nixon. Patient counseled regarding signs and symptoms for which I believe and urgent re-evaluation would be necessary. Patient with good understanding of and agreement to plan and is comfortable going home at this time This document was made in part using voice recognition software. While efforts are made to proofread this document, sound alike and grammatical errors may occur. Departure - Departure Disposition: 01 Home, Self Care Clinical Impression: Peripheral edema Condition: Good Instructions: ED Edema Legs Bilateral Follow-Up: Kristy Nixon MD [Provider Admit Priv/Credential] - Tomorrow (at 1230 10/07/20) Comments: Follow-up with Dr. Nixon tomorrow at 1230 in clinic. Return if you worsen. Your labs and ultrasound did not show any acute abnormality today. You can try the compression stockings at home. Discharge Date/Time: 10/06/20 18:53
[2020-10-06 18:02] LABS: CREATININE,URINE 91.9 mg/dL; PROTEIN/CREATININE RATIO,URINE 0.4 (<=0.2)
[2020-10-06] MEDS ORDERED: FUROSEMIDE 20 MG TABLET PO STA (18:24)
--- NOTE | 2020-10-06 18:44 | Ultrasound Report ---
PROCEDURE: Duplex Ext Veins Bilateral INDICATIONS: Bret Jefferson TECHNIQUE: Real-time imaging, as well as color and pulse Doppler interrogation, were performed of the deep veins of both legs from the inguinal ligament to the popliteal fossa. COMPARISON: None FINDINGS: The deep veins are normally compressible, and free of intraluminal thrombus. Color and pu lse Doppler demonstrate normal phasic intravascular flow. There is normal augmentation response to d istal compression maneuver. 2. 0.3 x 0.6 x 1.6 cm fluid collection is noted within left popliteal fossa. Bilateral calf edema is seen worse on the right side. IMPRESSION: 1. No evidence of DVT in visualized bilateral lower extremity veins. 2. Bilateral calf edema more prominent on the right side. Left popliteal cyst as above. Reviewed by: Vladimir Bruce MD on 10/06/2020 6:43 PM PST Approved by: Vladimir Bruce MD on 10/06/2020 6:43 PM PST Station ID: [id number]
== END 2020-10-06 18:53 | disposition home or self-care (01) ==
LOC: ED 16:44
DX: O90.89 Other complications of the puerperium, not elsewhere classified (principal); R60.0 Localized edema; M71.22 Synovial cyst of popliteal space [Baker], left knee; Z79.82 Long term (current) use of aspirin
CPT/HCPCS: 36415; 80053; 81001; 82570; 83690; 84156; 85025; 87086; 87181; 93970; 99284; A9270; 81003

== ENCOUNTER 2022-06-07 15:52 | Outpatient (CLI) | payer OTHER ==
[2022-06-07 16:16] LABS: BASOPHILS % (AUTO) 0.2 %; EOSINOPHILS # (AUTO) 0.1 10^3/uL (0.0-0.7); EOSINOPHILS % (AUTO) 1.4 %; HCT - HEMATOCRIT 34.2 % (37.0-47.0); HGB - HEMOGLOBIN 10.7 g/dL (12.0-16.0); LYMPHOCYTES # (AUTO) 2.4 10^3/uL (1.5-3.5); LYMPHOCYTES % (AUTO) 23.1 %; MEAN CORPUSCULAR HEMOGLOBIN 25.9 pg (27.0-31.0); MEAN CORPUSCULAR HGB CONC 31.3 g/dL (32.0-36.0); MEAN CORPUSCULAR VOLUME 82.8 fL (81.0-99.0); MEAN PLATELET VOLUME 9.6 fL (7.9-10.8); MONOCYTES # (AUTO) 0.8 10^3/uL (0.0-1.0); MONOCYTES % (AUTO) 7.8 %; NEUTROPHILS # (AUTO) 6.8 10^3/uL (1.5-6.6); NEUTROPHILS % (AUTO) 66.6 %; PLT - PLATELET COUNT 328 10^3/uL (130-450); RED BLOOD COUNT 4.13 10^6/uL (4.20-5.40); RED CELL DISTRIBUTION WIDTH 15.3 % (12.0-15.0); WHITE BLOOD COUNT 10.3 x10^3/uL (4.8-10.8)
[2022-06-08 05:10] LABS: HBsAG SCREEN Negative (Negative); HCV AB <0.1 s/co ratio (0.0-0.9); HIV SCREEN 4TH GENERATION Non Reactive (Non Reactive)
[2022-06-08 10:09] LABS: RPR Non Reactive (Non Reactive)
[2022-06-08 11:10] LABS: VARICELLA-ZOSTER AB IGG 137 index (Immune >165)
== END 2022-06-07 15:53 | disposition home or self-care (01) ==
LOC: LAB 15:52
PROVIDERS: ATTEND Nurse Practitioner
DX: Z34.90 Encounter for supervision of normal pregnancy, unspecified, unspecified trimester (principal); Z36.89 Encounter for other specified antenatal screening; Z86.2 Personal history of diseases of the blood and blood-forming organs and certain disorders involving the immune mechanism
CPT/HCPCS: 36415; 82728; 85025; 86592; 86762; 86787; 86803; 86850; 86900; 86901; 87340; 87389

== ENCOUNTER 2022-06-08 08:00 | Outpatient (CLI) | payer OTHER ==
[2022-06-08 12:28] LABS: BILIRUBIN,URINE NEGATIVE (NEGATIVE); GLUCOSE, URINE (UA) NEGATIVE (NEGATIVE); KETONES,URINE (UA) NEGATIVE (NEGATIVE); LEUKOCYTE ESTERASE, URINE NEGATIVE (NEGATIVE); NITRITE,URINE NEGATIVE (NEGATIVE); OCCULT BLOOD,URINE LARGE (NEGATIVE); PROTEIN,URINE NEGATIVE (NEGATIVE); UROBILINOGEN,URINE 0.2 (NORMAL) E.U./dL (NORMAL)
[2022-06-08 12:31] LABS: CLARITY,URINE CLOUDY (CLEAR)
[2022-06-08 13:03] LABS: BACTERIA,URINE Many /HPF (None Seen); RBC,URINE 0-5 /HPF (0-5); SQUAMOUS EPITHELIAL CELL,UR MANY Squamous (<= Few); WBC,URINE 0-3 /HPF (0-5)
[2022-06-08 23:02] LABS: CHLAMYDIA TRACHOMATIS DNA NEGATIVE (NEGATIVE); NEISSERIA GONORRHOEAE DNA NEGATIVE (NEGATIVE); TRICHOMONAS VAGINALIS DNA NEGATIVE (NEGATIVE)
== END 2022-06-08 23:59 | disposition home or self-care (01) ==
LOC: LAB.WC 08:00
PROVIDERS: ATTEND Nurse Practitioner
DX: Z34.90 Encounter for supervision of normal pregnancy, unspecified, unspecified trimester (principal); Z36.89 Encounter for other specified antenatal screening
CPT/HCPCS: 81001; 87086; 87491; 87591; 87661

== ENCOUNTER 2022-06-23 14:30 | Outpatient (CLI) | payer OTHER ==
[2022-06-24 12:34] LABS: BILIRUBIN,URINE NEGATIVE (NEGATIVE); GLUCOSE, URINE (UA) NEGATIVE (NEGATIVE); KETONES,URINE (UA) NEGATIVE (NEGATIVE); LEUKOCYTE ESTERASE, URINE NEGATIVE (NEGATIVE); NITRITE,URINE NEGATIVE (NEGATIVE); OCCULT BLOOD,URINE LARGE (NEGATIVE); PROTEIN,URINE NEGATIVE (NEGATIVE); UROBILINOGEN,URINE 0.2 (NORMAL) E.U./dL (NORMAL)
[2022-06-24 12:54] LABS: CLARITY,URINE CLOUDY (CLEAR)
[2022-06-24 12:56] LABS: BACTERIA,URINE Many /HPF (None Seen); SQUAMOUS EPITHELIAL CELL,UR MANY Squamous (<= Few); WBC,URINE 0-3 /HPF (0-5)
== END 2022-06-23 23:59 | disposition home or self-care (01) ==
LOC: LAB.R 14:30
PROVIDERS: ATTEND Obstetrics & Gynecology
DX: O09.891 Supervision of other high risk pregnancies, first trimester (principal); Z36.89 Encounter for other specified antenatal screening
CPT/HCPCS: 81001; 87086

== ENCOUNTER 2022-06-25 12:50 | Outpatient (CLI) | payer OTHER ==
[2022-06-25 14:10] LABS: BILIRUBIN,URINE NEGATIVE (NEGATIVE); GLUCOSE, URINE (UA) NEGATIVE (NEGATIVE); KETONES,URINE (UA) NEGATIVE (NEGATIVE); LEUKOCYTE ESTERASE, URINE NEGATIVE (NEGATIVE); NITRITE,URINE NEGATIVE (NEGATIVE); OCCULT BLOOD,URINE MODERATE (NEGATIVE); PROTEIN,URINE NEGATIVE (NEGATIVE); UROBILINOGEN,URINE 0.2 (NORMAL) E.U./dL (NORMAL)
[2022-06-25 14:12] LABS: CLARITY,URINE CLEAR (CLEAR)
[2022-06-25 14:26] LABS: BACTERIA,URINE Few /HPF (None Seen); RBC,URINE 0-5 /HPF (0-5); SQUAMOUS EPITHELIAL CELL,UR FEW Squamous (<= Few); WBC,URINE 0-3 /HPF (0-5)
== END 2022-06-25 12:51 | disposition home or self-care (01) ==
LOC: LAB 12:50
PROVIDERS: ATTEND Obstetrics & Gynecology
DX: O09.891 Supervision of other high risk pregnancies, first trimester (principal); Z36.89 Encounter for other specified antenatal screening
CPT/HCPCS: 81001; 87086

== ENCOUNTER 2022-06-29 07:30 | Outpatient (CLI) | payer OTHER | END 2022-06-29 07:31 | disposition home or self-care (01) | LOC: LAB 07:30 | PROVIDERS: ATTEND Obstetrics & Gynecology | DX: O09.891 Supervision of other high risk pregnancies, first trimester (principal) | CPT/HCPCS: 36415; 82950 ==

== ENCOUNTER 2022-10-25 07:10 | Outpatient (CLI) | payer OTHER ==
[2022-10-25 12:43] LABS: HGB - HEMOGLOBIN 10.5 g/dL (12.0-16.0); MEAN CORPUSCULAR HEMOGLOBIN 26.6 pg (27.0-31.0); MEAN CORPUSCULAR HGB CONC 30.9 g/dL (32.0-36.0); MEAN CORPUSCULAR VOLUME 86.1 fL (81.0-99.0); MEAN PLATELET VOLUME 10.7 fL (7.9-10.8); RED BLOOD COUNT 3.95 10^6/uL (4.20-5.40); RED CELL DISTRIBUTION WIDTH 14.4 % (12.0-15.0); WHITE BLOOD COUNT 9.3 x10^3/uL (4.8-10.8)
== END 2022-10-25 07:11 | disposition home or self-care (01) ==
LOC: LAB.N 07:10
PROVIDERS: ATTEND Obstetrics & Gynecology
DX: O09.891 Supervision of other high risk pregnancies, first trimester (principal); Z36.89 Encounter for other specified antenatal screening
CPT/HCPCS: 36415; 82950; 85027

== ENCOUNTER 2022-12-06 18:00 | Outpatient (CLI) | payer OTHER ==
--- NOTE | 2022-12-07 08:50 | Ultrasound Report ---
PROCEDURE: OB F/U or Repeat INDICATIONS: UTERINE SIZE DATE DISCREPANCY OUTSIDE/PRIOR DATING DATA: Last menstrual period (LMP): 04/15/2022. LMP-based estimated date of delivery (MINE): 01/20/2023. First dating scan (date and location): 06/10/2022. Estimated date of delivery (MINE) from first dating scan: 01/16/2023. The below data below was generated using the ultrasound MINE of 01/16/2023 TECHNIQUE: Real-time scanning was performed of the fetus, with image documentation and biometric measurements. Endovaginal scanning: Not performed COMPARISON: 09/15/2022 FINDINGS: General: A single living intrauterine gestation is present. Presentation: Cephalic Placenta: Placental position is posterior, without previa. Amniotic fluid index: 22.4 cm, borderline poly for gestational age. heart rate: 137 beats per minute. Maternal cervical canal: 4.7 cm long; normal length is 2.5 cm or more. biometrics: Biparietal diameter: 8.5 cm, 34 weeks 1 day Head circumference: 31.8 cm, 35 weeks 5 days Abdominal circumference: 31.6 cm, 35 weeks 4 days Femur length: 6.7 cm, 34 weeks 3 days Estimated gestational age from initial scan: 34 weeks 1 day. Composite gestational age from present scan: 35 weeks 0 days Estimated weight and percentile: 2594 g, 72nd percentile Measurement variability in biometric dating: +/- 10 days from 12-20 weeks gestation, +/- 2 weeks from 20-30 weeks gestation, +/- 3 weeks at 30 weeks gestation or more. Other: Not applicable. IMPRESSION: Single living intrauterine at 34 weeks 1 day, MINE of 01/16/2023. Estimated weight is 2594 g, 72nd percentile. ASTRID measures 22.4 cm, high limits of normal. Reviewed by: Zak Lassiter on 12/07/2022 8:48 AM PDT Approved by: Zak Lassiter on 12/07/2022 8:48 AM PDT Station ID: [id number]
== END 2022-12-06 18:01 | disposition home or self-care (01) ==
LOC: DI 18:00
PROVIDERS: ATTEND Nurse Practitioner
DX: O26.843 Uterine size-date discrepancy, third trimester (principal); Z3A.34 34 weeks gestation of pregnancy